=== PATIENT | female | born 1985 | race Caucasian/White ===

== ENCOUNTER 2016-12-03 18:45 | Emergency (ER) | payer OTHER ==
--- NOTE | 2016-12-03 19:39 | ED NURSING NOTES ---
Clinical Report - Nurses [facility] [address] [place] [address] 12/03/2016 18:45 Patient: MIR ROGERS TRIAGE Triage time 18:55. Acuity: LEVEL 4. Chief Complaint: MIGRAINE HEADACHE and (pain above the lt eye). Alert. No acute distress. SEPSIS SCREEN: Sepsis Screen: negative. Negative (no infection suspected/documented). NEVA COMA SCORE: [place] Coma Scale: 15- eyes open spontaneously (4); best verbal response- oriented x 4 (5); best motor response- obeys commands (6). --18:59 Mariia Kurtz R.N. 18:54 12/03/16. BP: 106/51. HR: 75. RR: 20. O2 saturation: 98% on room air. Temp: 97.6 F. Pain level now: 08/12. --18:59 Mariia Kurtz R.N. 18:54 12/03/16. BP: 106/51. HR: 75. RR: 20. O2 saturation: 98% on room air. Temp: 97.6 F. Pain level now: 08/12. --18:59 Mariia Kurtz R.N. Weight: 99.7 kg stated. Height/Length: 64 inches Per Patient. BMI: 37.8. --18:58 Mariia Kurtz R.N. Medications None. --18:57 Mariia Kurtz R.N. Medication/allergy information source: the patient. --18:59 Mariia Kurtz R.N. Allergies PCN. --18:57 Mariia Kurtz R.N. History Arrived by private vehicle. Historian: patient. No primary care physician. ( dropped off). This started today. Onset. (this am and got worse during the day). She has had nausea. No vomiting or numbness. 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 (4hrs ago). PAST MEDICAL HX: Headaches. SURGERY HX: Appendectomy. has been performed twice. SOCIAL HX: Light tobacco smoker (cigarette)- less than 1/2 a pack per day. No alcohol use or drug use. No recent travel. No known contact with a sick individual. FALL RISK ASSESSMENT: Fall risk assessment completed. No fall risk identified. NUTRITIONAL RISK ASSESSMENT: The nutritional risk assessment revealed no deficiencies. FUNCTIONAL ASSESSMENT: Functional assessment: no impairments noted. LEARNING NEEDS ASSESSMENT: The learning needs assessment revealed no barriers. SKIN INTEGRITY ASSESSMENT: Skin integrity risk assessment completed. No skin integrity risk identified. --18:59 Mariia Kurtz R.N. Interventions ID band on patient. To room. --18:59 Mariia Kurtz R.N. PHYSICAL ASSESSMENT Ambulatory to room. Patient gowned. GENERAL / NEURO / PSYCH: Alert. Oriented X 4. Appears in pain and anxious. Speech within normal limits. HEENT: No facial asymmetry noted. RESPIRATORY: Respirations not labored. CVS: Capillary refill less than 2 seconds. GI / : The patient has had nausea. Abdomen nontender. No emesis noted. SKIN: Skin is warm and dry. --19:00 Mariia Kurtz R.N. NURSING PROGRESS NOTES Patient gowned. Head of bed elevated. Two patient identifiers checked. Call light placed in reach. Side rails up x 2. Bed placed in lowest position. Brakes of bed on. Patient ready for evaluation. --19:01 Mariia Kurtz R.N. 19:47 12/03/2016 Imitrex (SUMAtriptan Succinate) Subcutaneous 6 mg given. Given in the right upper arm. --19:47 Mariia Kurtz R.N. 19:48 12/03/2016 Phenergan (Promethazine HCl) IM 25 mg given. Given in the right gluteus zachariah. Allergies verified, confirmed 5 rights and sedative warning given to the patient. --19:48 Mariia Kurtz R.N. 19:48 12/03/2016 Toradol (Ketorolac Tromethamine) IM 60 mg given. Given in the left gluteus zachariah (split dose). Allergies verified and confirmed 5 rights. --19:48 Mariia Kurtz R.N. DISPOSITION / DISCHARGE 19:56. No learning barriers present. Discharge instructions provided and reviewed with the patient. Patient verbalized understanding. Written instructions provided in Croatian. The patient was discharged home and accompanied by baling press operator. She left the Emergency Department ambulatory and via private vehicle. [employer] driving. Medication list reviewed and validated. --20:03 Mariia Kurtz R.N. 18:54 12/03/16. BP: 106/51. HR: 75. RR: 20. O2 saturation: 98% on room air. Temp: 97.6 F. Pain level now: 08/12. --20:03 Mariia Kurtz R.N. Locked/Released at 12/03/2016 20:03 by Mariia Kurtz R.N.
--- NOTE | 2016-12-03 19:39 | ED ORDER SUMMARY ---
..... Patient: MIR ROGERS OrderSheet [facility] VisitID: [id number] [address] [place] [address] 30y, F Registration Date/Time: 12/03/2016 ORDER SHEET Weight: 99.7 kg (stated) Allergies: PCN GENERAL ORDERS: MEDICATION ORDERS: Imitrex Subcut 6 mg (NOW) (19:24 12/03/2016 Fish CAICEDO) (Ack 19:39 SRoberts R.N.) (19:47 SRoberts R.N.) Phenergan IM 25 mg (HIGH ALERT MEDICATION, NOW) (19:24 12/03/2016 Fish CAICEDO) (Ack 19:39 SRoberts R.N.) (19:48 SRoberts R.N.) Toradol IM 60 mg (NOW) (19:24 12/03/2016 Fish CAICEDO) (Ack 19:39 SRoberts R.N.) (19:48 SRoberts R.N.) IV FLUIDS: ORDER SHEET NOTES: [Electronically signed by Mariia Kurtz R.N. (20:03 12/03/2016)] [Electronically signed by Celina Alexandra MD (17:17 12/09/2016)] [Electronically locked/signed by Mariia Kurtz R.N. (20:03 12/03/2016)]
--- NOTE | 2016-12-03 19:39 | ED CLINICAL REPORT ---
Clinical Report - Physicians/Mid Levels [facility] [address] [place] [address] 12/03/2016 18:45 Patient: MIR ROGERS Time Seen: 18:52. Arrived- By private vehicle. Historian- patient. HISTORY OF PRESENT ILLNESS Chief Complaint: MIGRAINE HEADACHE. Is still present. This started today. Onset during light activity. It is described as similar to previous headaches and "pain". Located in the frontal region and region of the left eye. No neck pain. At its maximum, severity described as moderate. Modifying factors: worsened by bright light; relieved by nothing. The patient has had photophobia and nausea. No preceding symptoms, blurred vision, numbness, weakness or vomiting. Similar symptoms previously: Many times. Recent medical care: Not recently seen/assessed. REVIEW OF SYSTEMS No fever, muscle aches, sinus pressure, ear pain or sore throat. No head injury, chest pain, difficulty breathing, cough or abdominal pain. No diarrhea, pain with urination, skin rash, enlarged lymph nodes or back pain. All systems otherwise negative, except as recorded above. PAST HISTORY Problems: Ovarian Cyst. Anxiety Reaction. OB History. Chronic Headache. Anemia. Sciatica. Migraine Headache. Tetanus Status. Immunizations. LNMP - Last Normal Menstrual Period. Additional Surgeries: Appendectomy. . Medications: None. Allergies: PCN. SOCIAL HISTORY Smoker- current status unknown. No alcohol use or drug use. ADDITIONAL NOTES The nursing notes have been reviewed. PHYSICAL EXAM Vital Signs: 12/03/2016 18:54 BP: 106/51. HR: 75. RR: 20. O2 saturation: 98%. Temp: 97.6 F. Pain level now: 10. Have been reviewed. Appearance: Alert. No acute distress. (PT appears mildly uncomfortable.). Eyes: Pupils equal, round and reactive to light. Eyes normal inspection. ENT: Nose normal. Neck: Normal inspection. CVS: Normal heart rate and rhythm. Heart sounds normal. Pulses normal. Respiratory: No respiratory distress. Breath sounds normal. Abdomen: Soft and nontender. Back: Normal inspection. No CVA tenderness. Skin: Skin warm and dry. Normal skin color. No rash. Normal skin turgor. Extremities: Extremities exhibit normal ROM. No lower extremity edema. Neuro: Oriented X 3. Alert. Mood/affect normal. Speech normal. Cranial nerves normal (as tested). No cerebellar findings. No motor deficit. No sensory deficit. LABS, X-RAYS, AND EKG Pulse Oximetry: 12/03/2016 18:54 O2 saturation: 98%. (FIO2 - room air). Interpretation: normal. PROGRESS AND PROCEDURES Course of Care: PT was given IM Phenergan and Toradol, and SQ Imitrex, with good response. Patient counseled in person regarding the patient's stable condition, diagnosis and need for follow-up. Concerns were addressed. Old medical records reviewed. Disposition: Discharged. Condition: stable and improved. CLINICAL IMPRESSION Acute recurrent migraine headache. No status migrainosus. INSTRUCTIONS Warnings: GENERAL WARNINGS: Return or contact your physician immediately if your condition worsens or changes unexpectedly, if not improving as expected, or if other problems arise. Follow-up: Follow up with your doctor in two days if not better. Understanding of the discharge instructions verbalized by patient. (Electronically signed by Celina Alexandra MD 12/09/2016 17:17)
--- NOTE | 2016-12-03 19:39 | ED CLINICAL REPORT ---
Clinical Report - Physicians/Mid Levels Located Within [facility] [address] [place] [address] 12/03/2016 18:45 Patient: MIR ROGERS Time Seen: 18:52. Arrived- By private vehicle. Historian- patient. HISTORY OF PRESENT ILLNESS Chief Complaint: MIGRAINE HEADACHE. Is still present. This started today. Onset during light activity. It is described as similar to previous headaches and "pain". Located in the frontal region and region of the left eye. No neck pain. At its maximum, severity described as moderate. Modifying factors: worsened by bright light; relieved by nothing. The patient has had photophobia and nausea. No preceding symptoms, blurred vision, numbness, weakness or vomiting. Similar symptoms previously: Many times. Recent medical care: Not recently seen/assessed. REVIEW OF SYSTEMS No fever, muscle aches, sinus pressure, ear pain or sore throat. No head injury, chest pain, difficulty breathing, cough or abdominal pain. No diarrhea, pain with urination, skin rash, enlarged lymph nodes or back pain. All systems otherwise negative, except as recorded above. PAST HISTORY Problems: Ovarian Cyst. Anxiety Reaction. OB History. Chronic Headache. Anemia. Sciatica. Migraine Headache. Tetanus Status. Immunizations. LNMP - Last Normal Menstrual Period. Additional Surgeries: Appendectomy. . Medications: None. Allergies: PCN. SOCIAL HISTORY Smoker- current status unknown. No alcohol use or drug use. ADDITIONAL NOTES The nursing notes have been reviewed. PHYSICAL EXAM Vital Signs: 12/03/2016 18:54 BP: 106/51. HR: 75. RR: 20. O2 saturation: 98%. Temp: 97.6 F. Pain level now: 10. Have been reviewed. Appearance: Alert. No acute distress. (PT appears mildly uncomfortable.). Eyes: Pupils equal, round and reactive to light. Eyes normal inspection. ENT: Nose normal. Neck: Normal inspection. CVS: Normal heart rate and rhythm. Heart sounds normal. Pulses normal. Respiratory: No respiratory distress. Breath sounds normal. Abdomen: Soft and nontender. Back: Normal inspection. No CVA tenderness. Skin: Skin warm and dry. Normal skin color. No rash. Normal skin turgor. Extremities: Extremities exhibit normal ROM. No lower extremity edema. Neuro: Oriented X 3. Alert. Mood/affect normal. Speech normal. Cranial nerves normal (as tested). No cerebellar findings. No motor deficit. No sensory deficit. LABS, X-RAYS, AND EKG Pulse Oximetry: 12/03/2016 18:54 O2 saturation: 98%. (FIO2 - room air). Interpretation: normal. PROGRESS AND PROCEDURES Course of Care: PT was given IM Phenergan and Toradol, and SQ Imitrex, with good response. Patient counseled in person regarding the patient's stable condition, diagnosis and need for follow-up. Concerns were addressed. Old medical records reviewed. Disposition: Discharged. Condition: stable and improved. CLINICAL IMPRESSION Acute recurrent migraine headache. No status migrainosus. INSTRUCTIONS Warnings: GENERAL WARNINGS: Return or contact your physician immediately if your condition worsens or changes unexpectedly, if not improving as expected, or if other problems arise. Follow-up: Follow up with your doctor in two days if not better. Understanding of the discharge instructions verbalized by patient. (Electronically signed by Celina Alexandra MD 12/09/2016 17:17)
--- NOTE | 2016-12-03 19:39 | ED ORDER SUMMARY ---
..... Patient: MIR ROGERS OrderSheet [facility] VisitID: [id number] [address] [place] [address] 30y, F Registration Date/Time: 12/03/2016 ORDER SHEET Weight: 99.7 kg (stated) Allergies: PCN GENERAL ORDERS: MEDICATION ORDERS: Imitrex Subcut 6 mg (NOW) (19:24 12/03/2016 Fish CAICEDO) (Ack 19:39 SRoberts R.N.) (19:47 SRoberts R.N.) Phenergan IM 25 mg (HIGH ALERT MEDICATION, NOW) (19:24 12/03/2016 Fish CAICEDO) (Ack 19:39 SRoberts R.N.) (19:48 SRoberts R.N.) Toradol IM 60 mg (NOW) (19:24 12/03/2016 Fish CAICEDO) (Ack 19:39 SRoberts R.N.) (19:48 SRoberts R.N.) IV FLUIDS: ORDER SHEET NOTES: [Electronically signed by Mariia Kurtz R.N. (20:03 12/03/2016)] [Electronically signed by Celina Alexandra MD (17:17 12/09/2016)] [Electronically locked/signed by Mariia Kurtz R.N. (20:03 12/03/2016)]
--- NOTE | 2016-12-03 19:39 | ED NURSING NOTES ---
Clinical Report - Nurses [facility] [address] [place] [address] 12/03/2016 18:45 Patient: MIR ROGERS TRIAGE Triage time 18:55. Acuity: LEVEL 4. Chief Complaint: MIGRAINE HEADACHE and (pain above the lt eye). Alert. No acute distress. SEPSIS SCREEN: Sepsis Screen: negative. Negative (no infection suspected/documented). NEVA COMA SCORE: [place] Coma Scale: 15- eyes open spontaneously (4); best verbal response- oriented x 4 (5); best motor response- obeys commands (6). --18:59 Mariia Kurtz R.N. 18:54 12/03/16. BP: 106/51. HR: 75. RR: 20. O2 saturation: 98% on room air. Temp: 97.6 F. Pain level now: 08/12. --18:59 Mariia Kurtz R.N. 18:54 12/03/16. BP: 106/51. HR: 75. RR: 20. O2 saturation: 98% on room air. Temp: 97.6 F. Pain level now: 08/12. --18:59 Mariia Kurtz R.N. Weight: 99.7 kg stated. Height/Length: 64 inches Per Patient. BMI: 37.8. --18:58 Mariia Kurtz R.N. Medications None. --18:57 Mariia Kurtz R.N. Medication/allergy information source: the patient. --18:59 Mariia Kurtz R.N. Allergies PCN. --18:57 Mariia Kurtz R.N. History Arrived by private vehicle. Historian: patient. No primary care physician. ( dropped off). This started today. Onset. (this am and got worse during the day). She has had nausea. No vomiting or numbness. 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 PAST MEDICAL HX: Headaches. SURGERY HX: Appendectomy. has been performed twice. SOCIAL HX: Light tobacco smoker (cigarette)- less than 1/2 a pack per day. No alcohol use or drug use. No recent travel. No known contact with a sick individual. FALL RISK ASSESSMENT: Fall risk assessment completed. No fall risk identified. NUTRITIONAL RISK ASSESSMENT: The nutritional risk assessment revealed no deficiencies. FUNCTIONAL ASSESSMENT: Functional assessment: no impairments noted. LEARNING NEEDS ASSESSMENT: The learning needs assessment revealed no barriers. SKIN INTEGRITY ASSESSMENT: Skin integrity risk assessment completed. No skin integrity risk identified. --18:59 Mariia Kurtz R.N. Interventions ID band on patient. To room. --18:59 Mariia Kurtz R.N. PHYSICAL ASSESSMENT Ambulatory to room. Patient gowned. GENERAL / NEURO / PSYCH: Alert. Oriented X 4. Appears in pain and anxious. Speech within normal limits. HEENT: No facial asymmetry noted. RESPIRATORY: Respirations not labored. CVS: Capillary refill less than 2 seconds. GI / : The patient has had nausea. Abdomen nontender. No emesis noted. SKIN: Skin is warm and dry. --19:00 Mariia Kurtz R.N. NURSING PROGRESS NOTES Patient gowned. Head of bed elevated. Two patient identifiers checked. Call light placed in reach. Side rails up x 2. Bed placed in lowest position. Brakes of bed on. Patient ready for evaluation. --19:01 Mariia Kurtz R.N. 19:47 12/03/2016 Imitrex (SUMAtriptan Succinate) Subcutaneous 6 mg given. Given in the right upper arm. --19:47 Mariia Kurtz R.N. 19:48 12/03/2016 Phenergan (Promethazine HCl) IM 25 mg given. Given in the right gluteus zachariah. Allergies verified, confirmed 5 rights and sedative warning given to the patient. --19:48 Mariia Kurtz R.N. 19:48 12/03/2016 Toradol (Ketorolac Tromethamine) IM 60 mg given. Given in the left gluteus zachariah (split dose). Allergies verified and confirmed 5 rights. --19:48 Mariia Kurtz R.N. DISPOSITION / DISCHARGE 19:56. No learning barriers present. Discharge instructions provided and reviewed with the patient. Patient verbalized understanding. Written instructions provided in Turkmen. The patient was discharged home and accompanied by remote inpatient coder. She left the Emergency Department ambulatory and via private vehicle. 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 Medication list reviewed and validated. --20:03 Mariia Kurtz R.N. 18:54 12/03/16. BP: 106/51. HR: 75. RR: 20. O2 saturation: 98% on room air. Temp: 97.6 F. Pain level now: 08/12. --20:03 Mariia Kurtz R.N. Locked/Released at 12/03/2016 20:03 by Mariia Kurtz R.N.
--- NOTE | 2016-12-09 17:17 | ED MAR SUMMARY ---
..... Medication Administration Record [facility] [address] [place] [address] Patient: MIR ROGERS Visit ID: [id number] 30y, F Weight: 99.7 kg Height/Length: 64 in BMI: 37.8 ALLERGIES: PCN Given 19:47 12/03/2016 Mariia Kurtz R.N. Medication Administered: IMITREX [SUBCUTANEOUS] (SUMATRIPTAN SUCCINATE), Dose: 6 mg Subcutaneous. Medication Ordered: Imitrex Subcut 6 mg (NOW). Given 19:48 12/03/2016 Mariia Kurtz R.N. Medication Administered: PHENERGAN [IM] (PROMETHAZINE HCL), Dose: 25 mg IM. Medication Ordered: Phenergan IM 25 mg (HIGH ALERT MEDICATION, NOW). Given 19:48 12/03/2016 Mariia Kurtz R.NAbhijeet Medication Administered: TORADOL [IM] (KETOROLAC TROMETHAMINE), Dose: 60 mg IM. Medication Ordered: Toradol IM 60 mg (NOW).
--- NOTE | 2016-12-09 17:17 | ED MED RECONCILIATION SUMMARY ---
Patient: OLIVER ROGERSGAIL Deven Medication Reconciliation Report [facility] VisitID: [id number] [address] [place] [address] 30y, F Registration Date/Time: 12/03/2016 Weight: 99.7 kg Height/Length: 64 in. BMI: 37.8 ALLERGIES: PCN The patient's Home Medications are listed below: NONE. The source(s) of the original Home Medication information: patient The following Medications were given to the patient in the Emergency Department: Imitrex [Subcutaneous] Subcutaneous 6 mg, administered: 12/03/2016 7:47:00 PM Phenergan [IM] IM 25 mg, administered: 12/03/2016 7:48:00 PM Toradol [IM] IM 60 mg, administered: 12/03/2016 7:48:00 PM The following Medications were prescribed to the patient: None.
--- NOTE | 2016-12-09 17:17 | ED MED RECONCILIATION SUMMARY ---
Patient: OLIVER ROGERSGAIL Deven Medication Reconciliation Report [facility] VisitID: [id number] [address] [place] [address] 30y, F Registration Date/Time: 12/03/2016 Weight: 99.7 kg Height/Length: 64 in. BMI: 37.8 ALLERGIES: PCN The patient's Home Medications are listed below: NONE. The source(s) of the original Home Medication information: patient The following Medications were given to the patient in the Emergency Department: Imitrex [Subcutaneous] Subcutaneous 6 mg, administered: 12/03/2016 7:47:00 PM Phenergan [IM] IM 25 mg, administered: 12/03/2016 7:48:00 PM Toradol [IM] IM 60 mg, administered: 12/03/2016 7:48:00 PM The following Medications were prescribed to the patient: None.
--- NOTE | 2016-12-09 17:17 | ED DISCHARGE INSTRUCTIONS ---
Patient: MIR ROGERS General Instructions [facility] VisitID: [id number] [place] [address] 30y, F Registration Date/Time: 12/03/2016 Acute recurrent migraine headache. No status migrainosus. INSTRUCTIONS Warnings: GENERAL WARNINGS: Return or contact your physician immediately if your condition worsens or changes unexpectedly, if not improving as expected, or if other problems arise. Follow-up: Follow up with your doctor in two days if not better. Understanding of the discharge instructions verbalized by patient. ADDITIONAL INFORMATION Migraine Headache Migraine headaches are related to changes in blood flow to the brain. This causes throbbing or constant pain on one or both sides of the head. The pain may last from a few hours to several days. There is usually nausea, vomiting, sensitivity to light and sound, and blurred vision. A migraine attack may be triggered by emotional stress, hormone changes during the menstrual cycle, oral contraceptives, alcohol use, certain foods containing tyramine, eye strain, weather changes, missing meals, or too little or too much sleep. Home Care For This Headache: 1) If you were given pain medicine for this headache, do not drive yourself home . Arrange for a ride, instead. When you get home, try to sleep. You should feel much better when you wake up. 2) Migraine headaches may improve with an ice pack on the forehead or at the base of the skull. Heat to the back of your neck may relieve any neck spasm. 3) Drink only clear liquids or eat a very light diet to avoid nausea/vomiting until symptoms improve. Preventing Future Headaches: 1) Pay attention to those factors that seem to trigger your headache. Try to avoid them when you can. If you have frequent headaches, it is useful to keep a diary of what you were doing, feeling or eating in the hours before each attack. Show this to your doctor to help find the cause of your headaches. a) If you feel that stress is a factor in your headaches, look at the sources of stress in your life. Find ways to release the build-up of those stresses by using regular exercise, relaxation methods (yoga, meditation), bio-feedback or simply taking time-out for yourself. For more information about this, consult your doctor or go to a local bookstore and review books and tapes on this subject. b) Tyramine is a substance present in the following foods : chocolate, yogurt, all cheeses except cottage cheese and cream cheese. smoked or pickled fish and meat (including infante, caviar, bologna, pepperoni, salami), liver, avocados, bananas, figs, raisins, and red wine. Be aware that these foods may trigger a migraine in some persons. Try taking these foods out of your diet for 1-2 months to see if this reduces headache frequency. Treating Future Attacks: 1) At the first sign of a headache, take time out if possible. Find a quiet, dark, comfortable place to sit or lie down. Let yourself relax or sleep. 2) An ice pack on the forehead or area of greatest pain may help. If you are having muscle spasm and tightness of the neck, a heating pad and massage to this area may be helpful. 3) If you have been prescribed a medicine to stop a migraine headache, use this at the very first warning sign of the headache (aura or initial pain) for best results. Follow Up with your doctor if the headache is not better within the next 24 hours. If you have frequent headaches you should discuss a treatment plan with your primary care doctor. Ask if you can have medicine to take at home the next time you get a bad headache. Poorly controlled chronic headaches may require a referral to a neurologist (headache specialist). Get Prompt Medical Attention if any of the following occur: Your head pain gets worse, or does not improve within 24 hours Repeated vomiting (cant keep liquids down) Sinus or ear or throat pain (not already reported) Fever of 100.4 F (38 C) or higher, or as directed by your healthcare provider Stiff neck Extreme drowsiness, confusion or fainting Dizziness, vertigo (dizziness with spinning sensation) Weakness of an arm or leg or one side of the face Difficulty with speech or vision You have been given the following additional information: Headache, Migraine (Classical) (Electronically signed by Celina Alexandra MD 12/09/2016 17:17)
--- NOTE | 2016-12-09 17:17 | ED MAR SUMMARY ---
..... Medication Administration Record [facility] [address] [place] [address] Patient: MIR ROGERS Visit ID: [id number] 30y, F Weight: 99.7 kg Height/Length: 64 in BMI: 37.8 ALLERGIES: PCN Given 19:47 12/03/2016 Mariia Kurtz R.N. Medication Administered: IMITREX [SUBCUTANEOUS] (SUMATRIPTAN SUCCINATE), Dose: 6 mg Subcutaneous. Medication Ordered: Imitrex Subcut 6 mg (NOW). Given 19:48 12/03/2016 Mariia Kurtz R.N. Medication Administered: PHENERGAN [IM] (PROMETHAZINE HCL), Dose: 25 mg IM. Medication Ordered: Phenergan IM 25 mg (HIGH ALERT MEDICATION, NOW). Given 19:48 12/03/2016 Mariia Kurtz R.NAbhijeet Medication Administered: TORADOL [IM] (KETOROLAC TROMETHAMINE), Dose: 60 mg IM. Medication Ordered: Toradol IM 60 mg (NOW).
== END 2016-12-03 19:54 | disposition home or self-care (01) ==
LOC: ED SRH 18:45
DX: G43.911 Migraine, unspecified, intractable, with status migrainosus (principal); F17.200 Nicotine dependence, unspecified, uncomplicated; Z88.0 Allergy status to penicillin

== ENCOUNTER 2016-12-18 11:49 | Emergency (ER) | payer OTHER ==
--- NOTE | 2016-12-18 13:12 | ED NURSING NOTES ---
Clinical Report - Nurses [facility] [address] [place] [address] 12/18/2016 11:51 Patient: MIR ROGERS TRIAGE Triage time 12:00. Acuity: LEVEL 5. Chief Complaint: LEFT LOWER TOOTHACHE. 12:00 12/18/16. 12:00 12/18/16. Alert. ( Pt was having a dental procedure today, and pt states they had to stop due to reaching her maximum amount of local anesthesia.). --12:03 Will Aleman R.N. 12:00 12/18/16. BP: 141/89. HR: 99. RR: 12. O2 saturation: 99% on room air. Temp: 98.2 F (oral). Pain level now: 08/12. --12:03 Will Aleman R.N. Weight: 99.7 kg stated. Height/Length: 64 inches Per Patient. BMI: 37.8. --12:00 Will Aleman R.N. Medications None. --12:03 Will Aleman R.N. Medication/allergy information source: the patient. --12:03 Will Aleman R.N. Allergies PCN. --12:03 Will Aleman R.N. History Arrived by private vehicle. Historian: patient. Accompanied by family. Primary physician (KRISTINA GANDHI). 12:00 12/18/16. This started today. She has no dental appointment scheduled. 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 PAST MEDICAL HX: Immunizations: up-to-date. Last normal menstrual period- Ended DEC 20. SOCIAL HX: Current every day light tobacco smoker (cigarette)- less than 1/2 a pack per day. No drug use. FALL RISK ASSESSMENT: Fall risk assessment completed. No fall risk identified. NUTRITIONAL RISK ASSESSMENT: The nutritional risk assessment revealed no deficiencies. FUNCTIONAL ASSESSMENT: Functional assessment: no impairments noted. LEARNING NEEDS ASSESSMENT: The learning needs assessment revealed no barriers. SKIN INTEGRITY ASSESSMENT: Skin integrity risk assessment completed. No skin integrity risk identified. --12:03 Will Aleman R.N. SOCIAL HX: No infectious disease exposure. ABUSE ASSESSMENT: No report of abuse. --12:03 Will Aleman R.N. PROBLEMS: Scabies. Felon. Fall. Ovarian Cyst. Discomfort of . Anxiety Reaction. . OB History. Chronic Headache. Recent Travel. Sick Contact. Back Pain. Anemia. Sciatica. Migraine Headache. UTI - Urinary Tract Infection. Paronychia. Abscess. Cellulitis. Tetanus Status. Hematuria. Immunizations. LNMP - Last Normal Menstrual Period. --12:03 Will Aleman R.N. ADDITIONAL SURGERIES: Appendectomy. . --12:03 Will Aleman R.N. Assessment 12:12/18/16. --12:03 Will Aleman R.N. Interventions 12:12/18/16. 12:12/18/16. ID and allergy band on patient. To treatment room. --12:03 Will Aleman R.N. PHYSICAL ASSESSMENT 12:12/18/16. Ambulatory to room. GENERAL / NEURO / PSYCH: Appears in pain. CVS: Capillary refill less than 2 seconds. SKIN: Skin is warm and dry. --12:04 Will Aleman R.N. NURSING PROGRESS NOTES 12:12/18/16. The plan of care for this patient has been created. Monitoring of patient in place. Head of bed elevated. Reassurance given. Two patient identifiers checked. Call light placed in reach. Side rails up x 2. Bed placed in lowest position. Brakes of bed on. Brakes of chair on. Patient ready for evaluation- chart flagged and notification provided. --12:04 Will Aleman R.N. 12:23 12/18/16. ( Dental referral sheet given). --12:23 Will Aleman R.N. DISPOSITION / DISCHARGE Departure time: 1325 PM. Condition at departure: unchanged and stable. The goals identified in the patient's plan of care were met. No learning barriers present. Reviewed medication(s) side effects, precautions, dosing and course information. Prescription(s) given to the patient (Cleocin and oxy 5). Reviewed referral to a dentist. Patient verbalized understanding. Written instructions provided in Occitan. No diet instructions or activity restrictions. The patient was discharged by the physician. She was discharged home and accompanied by sample book maker. She left the Emergency Department ambulatory and via private vehicle. Manager Gyn driving. FALL RISK ASSESSMENT: Fall risk assessment completed. No fall risk identified. --13:31 Imani Jarrell R.N. 13:20 12/18/16. BP: 129/77 (regular adult cuff) taken on the left arm, via an automated monitor, while sitting. HR: 92. RR: 15. O2 saturation: 98% on room air. Temp: 98.1 F (oral). Pain level now: 04/12. --13:31 Imani Jarrell R.N. Locked/Released at 12/18/2016 13:31 by Imani Jarrell R.N.
--- NOTE | 2016-12-18 13:12 | ED NURSING NOTES ---
Clinical Report - Nurses [facility] [address] [place] [address] 12/18/2016 11:51 Patient: MIR ROGERS TRIAGE Triage time 12:00. Acuity: LEVEL 5. Chief Complaint: LEFT LOWER TOOTHACHE. 12:00 12/18/16. 12:00 12/18/16. Alert. ( Pt was having a dental procedure today, and pt states they had to stop due to reaching her maximum amount of local anesthesia.). --12:03 Will Aleman R.N. 12:00 12/18/16. BP: 141/89. HR: 99. RR: 12. O2 saturation: 99% on room air. Temp: 98.2 F (oral). Pain level now: 08/12. --12:03 Will Aleman R.N. Weight: 99.7 kg stated. Height/Length: 64 inches Per Patient. BMI: 37.8. --12:00 Will Aleman R.N. Medications None. --12:03 Will Aleman R.N. Medication/allergy information source: the patient. --12:03 Will Aleman R.N. Allergies PCN. --12:03 Will Aleman R.N. History Arrived by private vehicle. Historian: patient. Accompanied by family. Primary physician (KRISTINA GANDHI). 12:00 12/18/16. This started today. She has no dental appointment scheduled. 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 PAST MEDICAL HX: Immunizations: up-to-date. Last normal menstrual period- Ended DEC 20. SOCIAL HX: Current every day light tobacco smoker (cigarette)- less than 1/2 a pack per day. No drug use. FALL RISK ASSESSMENT: Fall risk assessment completed. No fall risk identified. NUTRITIONAL RISK ASSESSMENT: The nutritional risk assessment revealed no deficiencies. FUNCTIONAL ASSESSMENT: Functional assessment: no impairments noted. LEARNING NEEDS ASSESSMENT: The learning needs assessment revealed no barriers. SKIN INTEGRITY ASSESSMENT: Skin integrity risk assessment completed. No skin integrity risk identified. --12:03 Will Aleman R.N. SOCIAL HX: No infectious disease exposure. ABUSE ASSESSMENT: No report of abuse. --12:03 Will Aleman R.N. PROBLEMS: Scabies. Felon. Fall. Ovarian Cyst. Discomfort of . Anxiety Reaction. . OB History. Chronic Headache. Recent Travel. Sick Contact. Back Pain. Anemia. Sciatica. Migraine Headache. UTI - Urinary Tract Infection. Paronychia. Abscess. Cellulitis. Tetanus Status. Hematuria. Immunizations. LNMP - Last Normal Menstrual Period. --12:03 Will Aleman R.N. ADDITIONAL SURGERIES: Appendectomy. . --12:03 Will Aleman R.N. Assessment 12:12/18/16. --12:03 Will Aleman R.N. Interventions 12:12/18/16. 12:12/18/16. ID and allergy band on patient. To treatment room. --12:03 Will Aleman R.N. PHYSICAL ASSESSMENT 12:12/18/16. Ambulatory to room. GENERAL / NEURO / PSYCH: Appears in pain. CVS: Capillary refill less than 2 seconds. SKIN: Skin is warm and dry. --12:04 Will Aleman R.N. NURSING PROGRESS NOTES 12:12/18/16. The plan of care for this patient has been created. Monitoring of patient in place. Head of bed elevated. Reassurance given. Two patient identifiers checked. Call light placed in reach. Side rails up x 2. Bed placed in lowest position. Brakes of bed on. Brakes of chair on. Patient ready for evaluation- chart flagged and notification provided. --12:04 Will Aleman R.N. 12:23 12/18/16. ( Dental referral sheet given). --12:23 Will Aleman R.N. DISPOSITION / DISCHARGE Departure time: 1325 PM. Condition at departure: unchanged and stable. The goals identified in the patient's plan of care were met. No learning barriers present. Reviewed medication(s) side effects, precautions, dosing and course information. Prescription(s) given to the patient (Cleocin and oxy 5). Reviewed referral to a dentist. Patient verbalized understanding. Written instructions provided in Korean. No diet instructions or activity restrictions. The patient was discharged by the physician. She was discharged home and accompanied by coil connector. She left the Emergency Department ambulatory and via private vehicle. Physical Laboratory Assistant driving. FALL RISK ASSESSMENT: Fall risk assessment completed. No fall risk identified. --13:31 Imani Jarrell R.N. 13:20 12/18/16. BP: 129/77 (regular adult cuff) taken on the left arm, via an automated monitor, while sitting. HR: 92. RR: 15. O2 saturation: 98% on room air. Temp: 98.1 F (oral). Pain level now: 04/12. --13:31 Imani Jarrell R.N. Locked/Released at 12/18/2016 13:31 by Imani Jarrell R.N.
--- NOTE | 2016-12-18 13:12 | ED CLINICAL REPORT ---
Clinical Report - Physicians/Mid Levels [facility] [address] [place] [address] 12/18/2016 11:51 Patient: MIR ROGERS Time Seen: 12:46 Dec 18 2016. Arrived- By private vehicle. Historian- patient. CPT: ER phys charges level 3 (#[id number]). HISTORY OF PRESENT ILLNESS Chief Complaint: DENTAL PAIN. This started today and is still present. Pain described as moderate. The patient has had toothache. Similar symptoms previously: Recent medical care: The patient was seen recently at another facility in the office (today). Seen for other problems. Evaluation and treatment: Attempted pulling tooth but could not due to anesthesia not working. REVIEW OF SYSTEMS No fever, cough, difficulty breathing, chest pain or nausea. No abdominal pain, difficulty with urination, fainting episodes, joint pain or skin rash. No enlarged lymph nodes. All systems otherwise negative, except as recorded above. PAST HISTORY Scabies. Felon. Fall. Ovarian Cyst. Discomfort of . Anxiety Reaction. . OB History. Chronic Headache. Recent Travel. Sick Contact. Back Pain. Anemia. Sciatica. Migraine Headache. UTI - Urinary Tract Infection. Paronychia. Abscess. Cellulitis. Tetanus Status. Hematuria. Immunizations. LNMP - Last Normal Menstrual Period. --12:03 Will Aleman R.N. ADDITIONAL SURGERIES: Appendectomy. . Medications: None. Allergies: PCN. SOCIAL HISTORY Light tobacco smoker (cigarette)- less than 1/2 a pack per day. No drug use. ADDITIONAL NOTES The nursing notes have been reviewed. PHYSICAL EXAM Vital Signs: 12/18/2016 12:00 BP: 141/89. HR: 99. RR: 12. O2 saturation: 99%. Temp: 98.2 F. Pain level now: 10/10. Appearance: Alert. Patient in mild distress. Head: Normal external inspection. Eyes: Pupils equal, round and reactive to light. Conjunctivae and eyelids normal. ENT: Moderate dental tenderness of a single tooth (lower left second molar) (Partially disrupted. Tooth appears intact.). Nose normal. Pharynx normal. Lips normal. Gums normal. Uvula midline. Neck: Trachea midline. No adenopathy. CVS: Normal heart rate and rhythm. Heart sounds normal. Pulses normal. No cardiac murmur. Respiratory: No respiratory distress. Breath sounds normal. Chest nontender. Abdomen: Soft. Skin: Normal skin color. No rash. Extremities: Extremities nontender. Neuro: Oriented X 3. No motor deficit. No sensory deficit. Reflexes normal. PROGRESS AND PROCEDURES Patient/family counseled. Disposition: Discharged. Condition: stable. CLINICAL IMPRESSION Partial , failed tooth extraction. INSTRUCTIONS Prescription Medications: Cleocin 300 mg: take 1 capsule orally every 6 hours for 7 days. No refills. Substitution is permissible. Oxycodone/APAP 5 mg/325 mg: take 1-2 tablets orally every 4 hours. Dispense fifteen (15). No refill. Follow-up: Follow up with an oral surgeon. Call for the next available appointment. Understanding of the discharge instructions verbalized by patient. (Electronically signed by Ranjit Kemp MD 12/20/2016 22:13)
--- NOTE | 2016-12-18 13:12 | ED CLINICAL REPORT ---
Clinical Report - Physicians/Mid Levels [facility] [address] [place] [address] 12/18/2016 11:51 Patient: MIR ROGERS Time Seen: 12:46 Dec 18 2016. Arrived- By private vehicle. Historian- patient. CPT: ER phys charges level 3 (#[id number]). HISTORY OF PRESENT ILLNESS Chief Complaint: DENTAL PAIN. This started today and is still present. Pain described as moderate. The patient has had toothache. Similar symptoms previously: Recent medical care: The patient was seen recently at another facility in the office (today). Seen for other problems. Evaluation and treatment: Attempted pulling tooth but could not due to anesthesia not working. REVIEW OF SYSTEMS No fever, cough, difficulty breathing, chest pain or nausea. No abdominal pain, difficulty with urination, fainting episodes, joint pain or skin rash. No enlarged lymph nodes. All systems otherwise negative, except as recorded above. PAST HISTORY Scabies. Felon. Fall. Ovarian Cyst. Discomfort of . Anxiety Reaction. . OB History. Chronic Headache. Recent Travel. Sick Contact. Back Pain. Anemia. Sciatica. Migraine Headache. UTI - Urinary Tract Infection. Paronychia. Abscess. Cellulitis. Tetanus Status. Hematuria. Immunizations. LNMP - Last Normal Menstrual Period. --12:03 Will Aleman R.N. ADDITIONAL SURGERIES: Appendectomy. . Medications: None. Allergies: PCN. SOCIAL HISTORY Light tobacco smoker (cigarette)- less than 1/2 a pack per day. No drug use. ADDITIONAL NOTES The nursing notes have been reviewed. PHYSICAL EXAM Vital Signs: 12/18/2016 12:00 BP: 141/89. HR: 99. RR: 12. O2 saturation: 99%. Temp: 98.2 F. Pain level now: 10/10. Appearance: Alert. Patient in mild distress. Head: Normal external inspection. Eyes: Pupils equal, round and reactive to light. Conjunctivae and eyelids normal. ENT: Moderate dental tenderness of a single tooth (lower left second molar) (Partially disrupted. Tooth appears intact.). Nose normal. Pharynx normal. Lips normal. Gums normal. Uvula midline. Neck: Trachea midline. No adenopathy. CVS: Normal heart rate and rhythm. Heart sounds normal. Pulses normal. No cardiac murmur. Respiratory: No respiratory distress. Breath sounds normal. Chest nontender. Abdomen: Soft. Skin: Normal skin color. No rash. Extremities: Extremities nontender. Neuro: Oriented X 3. No motor deficit. No sensory deficit. Reflexes normal. PROGRESS AND PROCEDURES Patient/family counseled. Disposition: Discharged. Condition: stable. CLINICAL IMPRESSION Partial , failed tooth extraction. INSTRUCTIONS Prescription Medications: Cleocin 300 mg: take 1 capsule orally every 6 hours for 7 days. No refills. Substitution is permissible. Oxycodone/APAP 5 mg/325 mg: take 1-2 tablets orally every 4 hours. Dispense fifteen (15). No refill. Follow-up: Follow up with an oral surgeon. Call for the next available appointment. Understanding of the discharge instructions verbalized by patient. (Electronically signed by Ranjit Kemp MD 12/20/2016 22:13)
--- NOTE | 2016-12-20 22:13 | ED DISCHARGE INSTRUCTIONS ---
Patient: MIR ROGERS General Instructions [facility] VisitID: [id number] [place] [address] 31y, F Registration Date/Time: 12/18/2016 Partial , failed tooth extraction. INSTRUCTIONS Prescription Medications: Cleocin 300 mg: take 1 capsule orally every 6 hours for 7 days. No refills. Substitution is permissible. Oxycodone/APAP 5 mg/325 mg: take 1-2 tablets orally every 4 hours. Dispense fifteen (15). No refill. Follow-up: Follow up with an oral surgeon. Call for the next available appointment. Understanding of the discharge instructions verbalized by patient. ADDITIONAL INFORMATION Oxycodone Hydrochloride, Acetaminophen Oral tablet What is this medicine? ACETAMINOPHEN; OXYCODONE (a set a FLAQUITA abigail fen; ox i KOE done) is a pain reliever. It is used to treat mild to moderate pain. How should I use this medicine? Take this medicine by mouth with a full glass of water. Follow the directions on the prescription label. Take your medicine at regular intervals. Do not take your medicine more often than directed. Talk to your lot associate regarding the use of this medicine in children. Special care may be needed. Patients over 65 years old may have a stronger reaction and need a smaller dose. What side effects may I notice from receiving this medicine? Side effects that you should report to your doctor or health overnight caregiver as soon as possible: allergic reactions like skin rash, itching or hives, swelling of the face, lips, or tongue breathing difficulties, wheezing confusion light headedness or fainting spells severe stomach pain yellowing of the skin or the whites of the eyes Side effects that usually do not require medical attention (report to your doctor or health overnight caregiver if they continue or are bothersome): dizziness drowsiness nausea vomiting What may interact with this medicine? alcohol antihistamines barbiturates like amobarbital, butalbital, butabarbital, methohexital, pentobarbital, phenobarbital, thiopental, and secobarbital benztropine drugs for bladder problems like solifenacin, trospium, oxybutynin, tolterodine, hyoscyamine, and methscopolamine drugs for breathing problems like ipratropium and tiotropium drugs for certain stomach or intestine problems like propantheline, homatropine methylbromide, glycopyrrolate, atropine, belladonna, and dicyclomine general anesthetics like etomidate, ketamine, nitrous oxide, propofol, desflurane, enflurane, halothane, isoflurane, and sevoflurane medicines for depression, anxiety, or psychotic disturbances medicines for sleep muscle relaxants naltrexone narcotic medicines (opiates) for pain phenothiazines like perphenazine, thioridazine, chlorpromazine, mesoridazine, fluphenazine, prochlorperazine, promazine, and trifluoperazine scopolamine tramadol trihexyphenidyl What if I miss a dose? If you miss a dose, take it as soon as you can. If it is almost time for your next dose, take only that dose. Do not take double or extra doses. Where should I keep my medicine? Keep out of the reach of children. This medicine can be abused. Keep your medicine in a safe place to protect it from theft. Do not share this medicine with anyone. Selling or giving away this medicine is dangerous and against the law. Store at room temperature between 20 and 25 degrees C (68 and 77 degrees F). Keep container tightly closed. Protect from light. This medicine may cause accidental overdose and if it is taken by other adults, children, or pets. Flush any unused medicine down the toilet to reduce the chance of harm. Do not use the medicine after the expiration date. What should I tell my health care provider before I take this medicine? They need to know if you have any of these conditions: brain tumor Crohn's disease, inflammatory bowel disease, or ulcerative colitis drink more than 3 alcohol containing drinks per day drug abuse or addiction head injury heart or circulation problems kidney disease or problems going to the bathroom liver disease lung disease, asthma, or breathing problems an unusual or allergic reaction to acetaminophen, oxycodone, other opioid analgesics, other medicines, foods, dyes, or preservatives or trying to get breast-feeding What should I watch for while using this medicine? Tell your doctor or health overnight caregiver if your pain does not go away, if it gets worse, or if you have new or a different type of pain. You may develop tolerance to the medicine. Tolerance means that you will need a higher dose of the medication for pain relief. Tolerance is normal and is expected if you take this medicine for a long time. Do not suddenly stop taking your medicine because you may develop a severe reaction. Your body becomes used to the medicine. This does NOT mean you are addicted. Addiction is a behavior related to getting and using a drug for a non-medical reason. If you have pain, you have a medical reason to take pain medicine. Your doctor will tell you how much medicine to take. If your doctor wants you to stop the medicine, the dose will be slowly lowered over time to avoid any side effects. You may get drowsy or dizzy. Do not drive, use machinery, or do anything that needs mental alertness until you know how this medicine affects you. Do not stand or sit up quickly, especially if you are an older patient. This reduces the risk of dizzy or fainting spells. Alcohol may interfere with the effect of this medicine. Avoid alcoholic drinks. There are different types of narcotic medicines (opiates) for pain. If you take more than one type at the same time, you may have more side effects. Give your health care provider a list of all medicines you use. Your doctor will tell you how much medicine to take. Do not take more medicine than directed. Call emergency for help if you have problems breathing. The medicine will cause constipation. Try to have a bowel movement at least every 2 to 3 days. If you do not have a bowel movement for 3 days, call your doctor or health overnight caregiver. Do not take Tylenol (acetaminophen) or medicines that have acetaminophen with this medicine. Too much acetaminophen can be very dangerous. Many nonprescription medicines contain acetaminophen. Always read the labels carefully to avoid taking more acetaminophen. You have been given the following additional information: Oxycodone Hydrochloride, Acetaminophen Oral tablet (Electronically signed by Ranjit Kemp MD 12/20/2016 22:13)
--- NOTE | 2016-12-20 22:13 | ED DISCHARGE INSTRUCTIONS ---
Patient: MIR ROGERS General Instructions [facility] VisitID: [id number] [place] [address] 31y, F Registration Date/Time: 12/18/2016 Partial , failed tooth extraction. INSTRUCTIONS Prescription Medications: Cleocin 300 mg: take 1 capsule orally every 6 hours for 7 days. No refills. Substitution is permissible. Oxycodone/APAP 5 mg/325 mg: take 1-2 tablets orally every 4 hours. Dispense fifteen (15). No refill. Follow-up: Follow up with an oral surgeon. Call for the next available appointment. Understanding of the discharge instructions verbalized by patient. ADDITIONAL INFORMATION Oxycodone Hydrochloride, Acetaminophen Oral tablet What is this medicine? ACETAMINOPHEN; OXYCODONE (a set a FLAQUITA abigail fen; ox i KOE done) is a pain reliever. It is used to treat mild to moderate pain. How should I use this medicine? Take this medicine by mouth with a full glass of water. Follow the directions on the prescription label. Take your medicine at regular intervals. Do not take your medicine more often than directed. Talk to your gusset maker regarding the use of this medicine in children. Special care may be needed. Patients over 65 years old may have a stronger reaction and need a smaller dose. What side effects may I notice from receiving this medicine? Side effects that you should report to your doctor or health childcare aide as soon as possible: allergic reactions like skin rash, itching or hives, swelling of the face, lips, or tongue breathing difficulties, wheezing confusion light headedness or fainting spells severe stomach pain yellowing of the skin or the whites of the eyes Side effects that usually do not require medical attention (report to your doctor or health childcare aide if they continue or are bothersome): dizziness drowsiness nausea vomiting What may interact with this medicine? alcohol antihistamines barbiturates like amobarbital, butalbital, butabarbital, methohexital, pentobarbital, phenobarbital, thiopental, and secobarbital benztropine drugs for bladder problems like solifenacin, trospium, oxybutynin, tolterodine, hyoscyamine, and methscopolamine drugs for breathing problems like ipratropium and tiotropium drugs for certain stomach or intestine problems like propantheline, homatropine methylbromide, glycopyrrolate, atropine, belladonna, and dicyclomine general anesthetics like etomidate, ketamine, nitrous oxide, propofol, desflurane, enflurane, halothane, isoflurane, and sevoflurane medicines for depression, anxiety, or psychotic disturbances medicines for sleep muscle relaxants naltrexone narcotic medicines (opiates) for pain phenothiazines like perphenazine, thioridazine, chlorpromazine, mesoridazine, fluphenazine, prochlorperazine, promazine, and trifluoperazine scopolamine tramadol trihexyphenidyl What if I miss a dose? If you miss a dose, take it as soon as you can. If it is almost time for your next dose, take only that dose. Do not take double or extra doses. Where should I keep my medicine? Keep out of the reach of children. This medicine can be abused. Keep your medicine in a safe place to protect it from theft. Do not share this medicine with anyone. Selling or giving away this medicine is dangerous and against the law. Store at room temperature between 20 and 25 degrees C (68 and 77 degrees F). Keep container tightly closed. Protect from light. This medicine may cause accidental overdose and if it is taken by other adults, children, or pets. Flush any unused medicine down the toilet to reduce the chance of harm. Do not use the medicine after the expiration date. What should I tell my health care provider before I take this medicine? They need to know if you have any of these conditions: brain tumor Crohn's disease, inflammatory bowel disease, or ulcerative colitis drink more than 3 alcohol containing drinks per day drug abuse or addiction head injury heart or circulation problems kidney disease or problems going to the bathroom liver disease lung disease, asthma, or breathing problems an unusual or allergic reaction to acetaminophen, oxycodone, other opioid analgesics, other medicines, foods, dyes, or preservatives or trying to get breast-feeding What should I watch for while using this medicine? Tell your doctor or health childcare aide if your pain does not go away, if it gets worse, or if you have new or a different type of pain. You may develop tolerance to the medicine. Tolerance means that you will need a higher dose of the medication for pain relief. Tolerance is normal and is expected if you take this medicine for a long time. Do not suddenly stop taking your medicine because you may develop a severe reaction. Your body becomes used to the medicine. This does NOT mean you are addicted. Addiction is a behavior related to getting and using a drug for a non-medical reason. If you have pain, you have a medical reason to take pain medicine. Your doctor will tell you how much medicine to take. If your doctor wants you to stop the medicine, the dose will be slowly lowered over time to avoid any side effects. You may get drowsy or dizzy. Do not drive, use machinery, or do anything that needs mental alertness until you know how this medicine affects you. Do not stand or sit up quickly, especially if you are an older patient. This reduces the risk of dizzy or fainting spells. Alcohol may interfere with the effect of this medicine. Avoid alcoholic drinks. There are different types of narcotic medicines (opiates) for pain. If you take more than one type at the same time, you may have more side effects. Give your health care provider a list of all medicines you use. Your doctor will tell you how much medicine to take. Do not take more medicine than directed. Call emergency for help if you have problems breathing. The medicine will cause constipation. Try to have a bowel movement at least every 2 to 3 days. If you do not have a bowel movement for 3 days, call your doctor or health childcare aide. Do not take Tylenol (acetaminophen) or medicines that have acetaminophen with this medicine. Too much acetaminophen can be very dangerous. Many nonprescription medicines contain acetaminophen. Always read the labels carefully to avoid taking more acetaminophen. You have been given the following additional information: Oxycodone Hydrochloride, Acetaminophen Oral tablet (Electronically signed by Ranjit Kemp MD 12/20/2016 22:13)
--- NOTE | 2016-12-20 22:14 | ED MED RECONCILIATION SUMMARY ---
Patient: MIR ROGERS Medication Reconciliation Report [facility] VisitID: [id number] [address] [place] [address] 31y, F Registration Date/Time: 12/18/2016 Weight: 99.7 kg Height/Length: 64 in. BMI: 37.8 ALLERGIES: PCN The patient's Home Medications are listed below: NONE. The source(s) of the original Home Medication information: patient The following Medications were given to the patient in the Emergency Department: None. The following Medications were prescribed to the patient: Cleocin 300 mg: take 1 capsule orally every 6 hours for 7 days. No refills. Substitution is permissible. -- Ranjit Kemp MD Oxycodone/APAP 5 mg/325 mg: take 1-2 tablets orally every 4 hours. Dispense fifteen (15). No refill. -- Ranjit Kemp MD
--- NOTE | 2016-12-20 22:14 | ED MED RECONCILIATION SUMMARY ---
Patient: MIR ROGERS Medication Reconciliation Report [facility] VisitID: [id number] [address] [place] [address] 31y, F Registration Date/Time: 12/18/2016 Weight: 99.7 kg Height/Length: 64 in. BMI: 37.8 ALLERGIES: PCN The patient's Home Medications are listed below: NONE. The source(s) of the original Home Medication information: patient The following Medications were given to the patient in the Emergency Department: None. The following Medications were prescribed to the patient: Cleocin 300 mg: take 1 capsule orally every 6 hours for 7 days. No refills. Substitution is permissible. -- Ranjit Kemp MD Oxycodone/APAP 5 mg/325 mg: take 1-2 tablets orally every 4 hours. Dispense fifteen (15). No refill. -- Ranjit Kemp MD
--- NOTE | 2016-12-20 22:14 | ED MAR SUMMARY ---
..... Medication Administration Record [facility] [address] [place], [place] [id number] Patient: ELIEZER ROGERSDALLAS Carvalho Visit ID: [id number] 31y, F Weight: 99.7 kg Height/Length: 64 in BMI: 37.8 ALLERGIES: PCN
--- NOTE | 2016-12-20 22:14 | ED MAR SUMMARY ---
..... Medication Administration Record [facility] [address] [place], [place] [id number] Patient: ELIEZER ROGERSDALLAS Carvalho Visit ID: [id number] 31y, F Weight: 99.7 kg Height/Length: 64 in BMI: 37.8 ALLERGIES: PCN
== END 2016-12-18 13:25 | disposition home or self-care (01) ==
LOC: ED SRH 11:49
DX: K08.89 Other specified disorders of teeth and supporting structures (principal); F17.210 Nicotine dependence, cigarettes, uncomplicated; Z88.0 Allergy status to penicillin

== ENCOUNTER 2017-01-14 21:13 | Emergency (ER) | payer OTHER ==
--- NOTE | 2017-01-14 21:40 | ED NURSING NOTES ---
Clinical Report - Nurses [facility] [address] [place] [address] 01/14/2017 21:13 Patient: MIR ROGERS TRIAGE Triage time 21:28. Acuity: LEVEL 4. Chief Complaint: SWELLING OF JAW / FACE and (Had a tooth pulled at yesterday. Ran out of med for pain.). Alert. No acute distress. --21:34 Mariia Kurtz R.N. 21:28 01/14/17. BP: 132/82. HR: 81. RR: 20. O2 saturation: 98%. Temp: 98.1 F. Pain level now: 07/13. --21:34 Mariia Kurtz R.N. 21:28 01/14/17. BP: 132/82. HR: 81. RR: 20. O2 saturation: 98%. Temp: 98.1 F. Pain level now: 07/13. --21:34 Mariia Kurtz R.N. Weight: 102.5 kg stated. Height/Length: 64 inches Per Patient. BMI: 38.8. --21:33 Mariia Kurtz R.N. Medications Vicodin Oral 5 mg, PRN. --21:30 Mariia Kurtz R.N. Ibuprofen Oral. --21:31 Mariia Kurtz R.N. Medication/allergy information source: the patient. --21:34 Mariia Kurtz R.N. Allergies PCN. --21:30 Mariia Kurtz R.N. History Arrived by private vehicle. Historian: patient. [facility] physician ([facility] This started yesterday. She has had facial pain. She has had swelling of the face and swelling of the jaw. 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 PAST MEDICAL HX: Immunizations: status is unknown. SOCIAL HX: Light tobacco smoker (cigarette)- less than 1/2 a pack per day. No alcohol use or drug use. FALL RISK ASSESSMENT: Fall risk assessment completed. No fall risk identified. NUTRITIONAL RISK ASSESSMENT: The nutritional risk assessment revealed no deficiencies. FUNCTIONAL ASSESSMENT: Functional assessment: no impairments noted. LEARNING NEEDS ASSESSMENT: The learning needs assessment revealed no barriers. SKIN INTEGRITY ASSESSMENT: Skin integrity risk assessment completed. No skin integrity risk identified. --21:34 Mariia Kurtz R.N. PROBLEMS: Scabies. Felon. Fall. Ovarian Cyst. Discomfort of . Anxiety Reaction. OB History. Chronic Headache. Recent Travel. Sick Contact. Back Pain. Anemia. Sciatica. Migraine Headache. UTI - Urinary Tract Infection. Paronychia. Abscess. Cellulitis. Tetanus Status. Hematuria. Immunizations. --21:32 Mariia Kurtz R.N. ADDITIONAL SURGERIES: Appendectomy. . --21:32 Mariia Kurtz R.N. Interventions ID band on patient. To room. --21:34 Mariia Kurtz R.N. PHYSICAL ASSESSMENT Ambulatory to room. GENERAL / NEURO / PSYCH: Alert. Oriented X 4. Appears in pain and anxious. HEENT: Voice within normal limits. Dental tenderness. Mucous membranes are pink. RESPIRATORY: Respirations not labored. CVS: Capillary refill less than 2 seconds. SKIN: Skin is warm and dry. Normal skin turgor. --21:35 Mariia Kurtz R.N. NURSING PROGRESS NOTES Head of bed elevated. Two patient identifiers checked. Call light placed in reach. Side rails up x 1. Bed placed in lowest position. Brakes of bed on. Patient ready for evaluation. --21:35 Mariia Kurtz R.N. DISPOSITION / DISCHARGE Departure time: 2147. No learning barriers present. Discharge instructions provided and reviewed with the patient. Reviewed warnings. Reviewed medication(s) information. Patient verbalized understanding. Written instructions provided in Sierra Leonean. The patient was discharged by the nurse practitioner. She was discharged home. She left the Emergency Department ambulatory and via private vehicle. Patient driving. --21:52 Galo Leo R.N. 21:51 01/14/17. BP: 134/94. HR: 70. RR: 18. O2 saturation: 97%. Temp: 98.4 F. Pain level now 6/10. --21:52 Galo Leo R.N. Locked/Released at 01/16/2017 8:38 by Analilia Cormier R.N.
--- NOTE | 2017-01-14 21:40 | ED NURSING NOTES ---
Clinical Report - Nurses [facility] [address] [place] [address] 01/14/2017 21:13 Patient: MIR ROGERS TRIAGE Triage time 21:28. Acuity: LEVEL 4. Chief Complaint: SWELLING OF JAW / FACE and (Had a tooth pulled at yesterday. Ran out of med for pain.). Alert. No acute distress. --21:34 Mariia Kurtz R.N. 21:28 01/14/17. BP: 132/82. HR: 81. RR: 20. O2 saturation: 98%. Temp: 98.1 F. Pain level now: 07/13. --21:34 Mariia Kurtz R.N. 21:28 01/14/17. BP: 132/82. HR: 81. RR: 20. O2 saturation: 98%. Temp: 98.1 F. Pain level now: 07/13. --21:34 Mariia Kurtz R.N. Weight: 102.5 kg stated. Height/Length: 64 inches Per Patient. BMI: 38.8. --21:33 Mariia Kurtz R.N. Medications Vicodin Oral 5 mg, PRN. --21:30 Mariia Kurtz R.N. Ibuprofen Oral. --21:31 Mariia Kurtz R.N. Medication/allergy information source: the patient. --21:34 Mariia Kurtz R.N. Allergies PCN. --21:30 Mariia Kurtz R.N. History Arrived by private vehicle. Historian: patient. [facility] ([facility] This started yesterday. She has had facial pain. She has had swelling of the face and swelling of the jaw. 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 PAST MEDICAL HX: Immunizations: status is unknown. SOCIAL HX: Light tobacco smoker (cigarette)- less than 1/2 a pack per day. No alcohol use or drug use. FALL RISK ASSESSMENT: Fall risk assessment completed. No fall risk identified. NUTRITIONAL RISK ASSESSMENT: The nutritional risk assessment revealed no deficiencies. FUNCTIONAL ASSESSMENT: Functional assessment: no impairments noted. LEARNING NEEDS ASSESSMENT: The learning needs assessment revealed no barriers. SKIN INTEGRITY ASSESSMENT: Skin integrity risk assessment completed. No skin integrity risk identified. --21:34 Mariia Kurtz R.N. PROBLEMS: Scabies. Felon. Fall. Ovarian Cyst. Discomfort of . Anxiety Reaction. OB History. Chronic Headache. Recent Travel. Sick Contact. Back Pain. Anemia. Sciatica. Migraine Headache. UTI - Urinary Tract Infection. Paronychia. Abscess. Cellulitis. Tetanus Status. Hematuria. Immunizations. --21:32 Mariia Kurtz R.N. ADDITIONAL SURGERIES: Appendectomy. . --21:32 Mariia Kurtz R.N. Interventions ID band on patient. To room. --21:34 Mariia Kurtz R.N. PHYSICAL ASSESSMENT Ambulatory to room. GENERAL / NEURO / PSYCH: Alert. Oriented X 4. Appears in pain and anxious. HEENT: Voice within normal limits. Dental tenderness. Mucous membranes are pink. RESPIRATORY: Respirations not labored. CVS: Capillary refill less than 2 seconds. SKIN: Skin is warm and dry. Normal skin turgor. --21:35 Mariia Kurtz R.N. NURSING PROGRESS NOTES Head of bed elevated. Two patient identifiers checked. Call light placed in reach. Side rails up x 1. Bed placed in lowest position. Brakes of bed on. Patient ready for evaluation. --21:35 Mariia Kutrz R.N. DISPOSITION / DISCHARGE Departure time: 2147. No learning barriers present. Discharge instructions provided and reviewed with the patient. Reviewed warnings. Reviewed medication(s) information. Patient verbalized understanding. Written instructions provided in Indonesian. The patient was discharged by the nurse practitioner. She was discharged home. She left the Emergency Department ambulatory and via private vehicle. Patient driving. --21:52 Galo Leo R.N. 21:51 01/14/17. BP: 134/94. HR: 70. RR: 18. O2 saturation: 97%. Temp: 98.4 F. Pain level now 6/10. --21:52 Galo Leo R.N. Locked/Released at 01/16/2017 8:38 by Analilia Cormier R.N.
--- NOTE | 2017-01-14 21:40 | ED CLINICAL REPORT ---
Clinical Report - Physicians/Mid Levels [facility] [address] [place] [address] 01/14/2017 21:13 Patient: MIR ROGERS Time Seen: 21:25; initial patient contact, initial documentation, patient care assumed. Arrived- By private vehicle. Historian- patient. RETURN VISIT: recently seen in this ED by another ED physician. Seen now for the same problem as before. HISTORY OF PRESENT ILLNESS Chief Complaint: DENTAL PAIN. This started yesterday. It is gone now. No sore throat, mouth sores, nasal discharge or congestion or ear pain. She has had toothache, swelling of the jaw and face, jaw pain and facial pain. Similar symptoms previously: Once, as bad. Recent medical care: The patient was seen recently at this facility in the emergency department. ( txed here 12/18 for dental issues and pain, got rx cleocin and oxycodone, states she f/u yesterday and had tooth removed, was given #10 vicoden and no abx, and already out of pain med, wants something for pain, no f/u scheduled). REVIEW OF SYSTEMS No difficulty breathing or chest pain. All systems otherwise negative, except as recorded above. PAST HISTORY See nurses notes. Scabies. Felon. Fall. Ovarian Cyst. Discomfort of . Anxiety Reaction. . OB History. Chronic Headache. Recent Travel. Sick Contact. Back Pain. Anemia. Sciatica. Migraine Headache. UTI - Urinary Tract Infection. Paronychia. Abscess. Cellulitis. Tetanus Status. Hematuria. Immunizations. LNMP - Last Normal Menstrual Period. --12:03 Will Aleman R.N. ADDITIONAL SURGERIES: Appendectomy. . SOCIAL HISTORY Light tobacco smoker. No alcohol use or drug use. No recent travel. Is a local resident. FAMILY HISTORY Negative. ADDITIONAL NOTES The nursing notes have been reviewed with agreement regarding the chief complaint, HPI, ROS, PMH and patient medications and allergies. PHYSICAL EXAM Vital Signs: 01/14/2017 21:28 BP: 132/82. HR: 81. RR: 20. O2 saturation: 98%. Temp: 98.1 F. Pain level now: 910. Have been reviewed as normal and appear to be correct. Appearance: Alert. No acute distress. Head: Abnormal external inspection. Mild swelling of the left maxilla. Eyes: Pupils equal, round and reactive to light. Conjunctivae and eyelids normal. ENT: Moderate dental tenderness of a single tooth with gingival tenderness (lower left first molar). No gingival induration, swelling or fluctuance. Ears normal. Nose normal. Pharynx normal. Lips normal. Gums normal. No trismus present. Uvula midline. Neck: Normal inspection. Trachea midline. No adenopathy. Thyroid normal. Neck supple. Respiratory: No respiratory distress. Skin: Normal skin color. No rash. Normal skin turgor. Extremities: Extremities exhibit normal ROM. Extremities nontender. Neuro: Oriented X 3. No motor deficit. No sensory deficit. PROGRESS AND PROCEDURES Patient counseled in person regarding the patient's stable condition and diagnosis. 21:39. Differential Diagnosis: Other possible considerations: substance abuse, dental pain, abscess, caries. Above considerations are based on history and physical exam. Differential diagnosis was discussed with patient. Disposition: Discharged home in good and unchanged condition (21:39). Condition: good and stable. CLINICAL IMPRESSION Moderate dental pain. INSTRUCTIONS Warnings: GENERAL WARNINGS: Return or contact your physician immediately if your condition worsens or changes unexpectedly, if not improving as expected, or if other problems arise. Specifically return if problem worsens. Prescription Medications: Tylenol with Codeine #3 (30 mg / 300 mg): take 1 tablet every 4 hours as needed for pain. Dispense fifteen (15). No refills. Substitution is permissible. Cleocin 300 mg: take 1 capsule orally every 6 hours for 7 days. No refills. Substitution is permissible. Follow-up: Follow up with a dentist in about two days even if well. Call for an appointment. Summary of care provided to patient. Understanding of the discharge instructions verbalized by patient. (Electronically signed by Yazmin Calderon A.R.N.P. 01/14/2017 22:47)
--- NOTE | 2017-01-16 08:38 | ED DISCHARGE INSTRUCTIONS ---
Patient: MIR ROGERS General Instructions [facility] VisitID: [id number] [place] [address] 31y, F Registration Date/Time: 01/14/2017 Moderate dental pain. INSTRUCTIONS Warnings: GENERAL WARNINGS: Return or contact your physician immediately if your condition worsens or changes unexpectedly, if not improving as expected, or if other problems arise. Specifically return if problem worsens. Prescription Medications: Tylenol with Codeine #3 (30 mg / 300 mg): take 1 tablet every 4 hours as needed for pain. Dispense fifteen (15). No refills. Substitution is permissible. Cleocin 300 mg: take 1 capsule orally every 6 hours for 7 days. No refills. Substitution is permissible. Follow-up: Follow up with a dentist in about two days even if well. Call for an appointment. Summary of care provided to patient. Understanding of the discharge instructions verbalized by patient. ADDITIONAL INFORMATION Dental Pain A crack or cavity in the tooth, which exposes the sensitive inner area of the tooth can cause tooth pain. An infection in the gum or the root of the tooth can cause pain and swelling. The pain is often made worse by drinking hot or cold fluids, or biting on hard foods. Pain may spread from the tooth to the ear or jaw on the same side. Home Care: Avoid hot and cold foods and liquids since your tooth may be sensitive to temperature changes. If your tooth is chipped or cracked, or if there is a large open cavity, apply OIL OF CLOVES (available [id number] in drug stores) directly to the tooth to reduce pain. Some pharmacies carry an [id number] "toothache kit." This contains a paste, which can be applied over the exposed tooth to decrease sensitivity. A cold pack on your jaw over the sore area may help reduce pain. You may use acetaminophen (Tylenol) or ibuprofen (Motrin, Advil) to control pain, unless another medicine was prescribed. [ NOTE: If you have chronic liver or kidney disease or ever had a stomach ulcer or GI bleeding, talk with your doctor before using these medicines.] If you have signs of an infection, an antibiotic will be given. Take it as directed. Follow-Up as directed with a dentist. Your pain may go away with the treatment given. However, only a dentist can fully evaluate and treat the cause and prevent the pain from coming back again. TOOTHACHE IS A SIGN OF DISEASE IN YOUR TOOTH AND SHOULD BE EXAMINED AND TREATED BY A DENTIST. Get Prompt Medical Attention if any of the following occur: Your face becomes swollen or red Pain worsens or spreads to the neck Fever over 100.4 F (38.0 C) Unusual drowsiness; headache or stiff neck; weakness or fainting Pus drains from the tooth Difficulty swallowing or breathing Acetaminophen, Codeine Phosphate Oral tablet What is this medicine? ACETAMINOPHEN; CODEINE (a set a FLAQUITA abigail fen; KOE carolyn) is a pain reliever. It is used to treat mild to moderate pain. How should I use this medicine? Take this medicine by mouth with a full glass of water. Follow the directions on the prescription label. If the medicine upsets your stomach, take the medicine with food or milk. Do not take more medicine than you are told to take. Talk to your nsh teacher regarding the use of this medicine in children. Special care may be needed. What side effects may I notice from receiving this medicine? Side effects that you should report to your doctor or health child care aide as soon as possible: allergic reactions like skin rash, itching or hives, swelling of the face, lips, or tongue breathing difficulties, wheezing confusion light headedness or fainting spells severe stomach pain yellowing of the skin or the whites of the eyes Side effects that usually do not require medical attention (report to your doctor or health child care aide if they continue or are bothersome): dizziness drowsiness nausea, vomiting What may interact with this medicine? alcohol antihistamines benztropine drugs for bladder problems like solifenacin, trospium, oxybutynin, tolterodine, hycosamine, and methscopolamine drugs for breathing problems like ipratropium and tiotropium drugs for certain stomach or intestine problems like propantheline, homatropine methylbromide, glycopyrrolate, atropine, belladonna, and dicyclomine medicines for depression, anxiety, or psychotic disturbances medicines for sleep muscle relaxants naltrexone narcotic medicines (opiates) for pain phenothiazines like perphenazine, thioridazine, chlorpromazine, mesoridazine, fluphenazine, prochlorperazine, promazine, trifluoperazine scopolamine tramadol trihexyphenidyl What if I miss a dose? If you miss a dose, take it as soon as you can. If it is almost time for your next dose, take only that dose. Do not take double or extra doses. Where should I keep my medicine? Keep out of the reach of children. This medicine can be abused. Keep your medicine in a safe place to protect it from theft. Do not share this medicine with anyone. Selling or giving away this medicine is dangerous and against the law. Store at room temperature between 15 and 30 degrees C (59 and 86 degrees F). Protect from light. Keep container tightly closed. Throw away any unused medicine after the expiration date. Discard unused medicine and used packaging carefully. Pets and children can be harmed if they find used or lost packages. What should I tell my health care provider before I take this medicine? They need to know if you have any of these conditions: brain tumor Crohn's disease, inflammatory bowel disease, or ulcerative colitis drink more than 3 alcohol containing drinks per day drug abuse or addiction head injury heart or circulation problems kidney disease or problems going to the bathroom liver disease lung disease, asthma, or breathing problems an unusual or allergic reaction to acetaminophen, codeine, salicylates, other opioid analgesics, other medicines, foods, dyes, or preservatives or trying to get breast-feeding What should I watch for while using this medicine? Tell your doctor or health child care aide if your pain does not go away, if it gets worse, or if you have new or a different type of pain. You may develop tolerance to the medication. Tolerance means that you will need a higher dose of the medication for pain relief. Tolerance is normal and is expected if you take the medicine for a long time. Do not suddenly stop taking your medicine because you may develop a severe reaction. Your body becomes used to the medicine. This does NOT mean you are addicted. Addiction is a behavior related to getting and using a drug for a non medical reason. If you have pain, you have a medical reason to take pain medicine. Your doctor will tell you how much medicine to take. If your doctor wants you to stop the medicine, the dose will be slowly lowered over time to avoid any side effects. You may get drowsy or dizzy. Do not drive, use machinery, or do anything that needs mental alertness until you know how this medicine affects you. Do not stand or sit up quickly, especially if you are an older patient. This reduces the risk of dizzy or fainting spells. Alcohol may interfere with the effect of this medicine. Avoid alcoholic drinks. There are different types of narcotic medicines (opiates) for pain. If you take more than one type at the same time, you may have more side effects. Give your health care provider a list of all medicines you use. Your doctor will tell you how much medicine to take. Do not take more medicine than directed. Call emergency for help if you have problems breathing. The medicine will cause constipation. Try to have a bowel movement at least every 2 to 3 days. If you do not have a bowel movement for 3 days, call your doctor or health child care aide. Do not take Tylenol (acetaminophen) or medicines that have acetaminophen with this medicine. Too much acetaminophen can be very dangerous. Many nonprescription medicines contain acetaminophen. Always read the labels carefully to avoid taking more acetaminophen. Immediately call your physician or get emergency help if you are breast-feeding and your baby is sleepier than usual, is limp, or has difficulty or breathing. Clindamycin Hydrochloride Oral capsule What is this medicine? CLINDAMYCIN (KLIN da SURINDER sin) is a lincosamide antibiotic. It is used to treat certain kinds of bacterial infections. It will not work for colds, flu, or other viral infections. How should I use this medicine? Take this medicine by mouth with a full glass of water. Follow the directions on the prescription label. You can take this medicine with food or on an empty stomach. If the medicine upsets your stomach, take it with food. Take your medicine at regular intervals. Do not take your medicine more often than directed. Take all of your medicine as directed even if you think your are better. Do not skip doses or stop your medicine early. Talk to your nsh teacher regarding the use of this medicine in children. Special care may be needed. What side effects may I notice from receiving this medicine? Side effects that you should report to your doctor or health child care aide as soon as possible: allergic reactions like skin rash, itching or hives, swelling of the face, lips, or tongue dark urine pain on swallowing redness, blistering, peeling or loosening of the skin, including inside the mouth unusual bleeding or bruising unusually weak or tired yellowing of eyes or skin Side effects that usually do not require medical attention (report to your doctor or health child care aide if they continue or are bothersome): diarrhea itching in the rectal or genital area joint pain nausea, vomiting stomach pain What may interact with this medicine? chloramphenicol erythromycin kaolin products What if I miss a dose? If you miss a dose, take it as soon as you can. If it is almost time for your next dose, take only that dose. Do not take double or extra doses. Where should I keep my medicine? Keep out of the reach of children. Store at room temperature between 20 and 25 degrees C (68 and 77 degrees F). Throw away any unused medicine after the expiration date. What should I tell my health care provider before I take this medicine? They need to know if you have any of these conditions: kidney disease liver disease stomach problems like colitis an unusual or allergic reaction to clindamycin, lincomycin, or other medicines, foods, dyes like tartrazine or preservatives or trying to get breast-feeding What should I watch for while using this medicine? Tell your doctor or healthcare professional if your symptoms do not start to get better or if they get worse. Do not treat diarrhea with over the counter products. Contact your doctor if you have diarrhea that lasts more than 2 days or if it is severe and watery. You have been given the following additional information: Dental Pain Acetaminophen, Codeine Phosphate Oral tablet Clindamycin Hydrochloride Oral capsule (Electronically signed by Yazmin Calderon A.R.N.P. 01/14/2017 22:47)
--- NOTE | 2017-01-16 08:38 | ED MED RECONCILIATION SUMMARY ---
Patient: MIR ROGERS Medication Reconciliation Report [facility] VisitID: [id number] [address] [place] [address] 31y, F Registration Date/Time: 01/14/2017 Weight: 102.5 kg Height/Length: 64 in. BMI: 38.8 ALLERGIES: PCN The patient's Home Medications are listed below: THE FOLLOWING MEDICATIONS NEED TO BE RECONCILED: Ibuprofen Oral Vicodin Oral 5 mg, PRN The source(s) of the original Home Medication information: patient The following Medications were given to the patient in the Emergency Department: None. The following Medications were prescribed to the patient: Tylenol with Codeine #3 (30 mg / 300 mg): take 1 tablet every 4 hours as needed for pain. Dispense fifteen (15). No refills. Substitution is permissible. -- Yazmin Calderon A.R.N.P. Cleocin 300 mg: take 1 capsule orally every 6 hours for 7 days. No refills. Substitution is permissible. -- Yazmin Calderon A.R.N.P.
--- NOTE | 2017-01-16 08:38 | ED MAR SUMMARY ---
..... Medication Administration Record [facility] [address] [place], [place] [id number] Patient: MIR ROGERS Visit ID: [id number] 31y, F Weight: 102.5 kg Height/Length: 64 in BMI: 38.8 ALLERGIES: PCN
--- NOTE | 2017-01-16 08:38 | ED DISCHARGE INSTRUCTIONS ---
Patient: MIR ROGERS General Instructions [facility] VisitID: [id number] [place] [address] 31y, F Registration Date/Time: 01/14/2017 Moderate dental pain. INSTRUCTIONS Warnings: GENERAL WARNINGS: Return or contact your physician immediately if your condition worsens or changes unexpectedly, if not improving as expected, or if other problems arise. Specifically return if problem worsens. Prescription Medications: Tylenol with Codeine #3 (30 mg / 300 mg): take 1 tablet every 4 hours as needed for pain. Dispense fifteen (15). No refills. Substitution is permissible. Cleocin 300 mg: take 1 capsule orally every 6 hours for 7 days. No refills. Substitution is permissible. Follow-up: Follow up with a dentist in about two days even if well. Call for an appointment. Summary of care provided to patient. Understanding of the discharge instructions verbalized by patient. ADDITIONAL INFORMATION Dental Pain A crack or cavity in the tooth, which exposes the sensitive inner area of the tooth can cause tooth pain. An infection in the gum or the root of the tooth can cause pain and swelling. The pain is often made worse by drinking hot or cold fluids, or biting on hard foods. Pain may spread from the tooth to the ear or jaw on the same side. Home Care: Avoid hot and cold foods and liquids since your tooth may be sensitive to temperature changes. If your tooth is chipped or cracked, or if there is a large open cavity, apply OIL OF CLOVES (available [id number] in drug stores) directly to the tooth to reduce pain. Some pharmacies carry an [id number] "toothache kit." This contains a paste, which can be applied over the exposed tooth to decrease sensitivity. A cold pack on your jaw over the sore area may help reduce pain. You may use acetaminophen (Tylenol) or ibuprofen (Motrin, Advil) to control pain, unless another medicine was prescribed. [ NOTE: If you have chronic liver or kidney disease or ever had a stomach ulcer or GI bleeding, talk with your doctor before using these medicines.] If you have signs of an infection, an antibiotic will be given. Take it as directed. Follow-Up as directed with a dentist. Your pain may go away with the treatment given. However, only a dentist can fully evaluate and treat the cause and prevent the pain from coming back again. TOOTHACHE IS A SIGN OF DISEASE IN YOUR TOOTH AND SHOULD BE EXAMINED AND TREATED BY A DENTIST. Get Prompt Medical Attention if any of the following occur: Your face becomes swollen or red Pain worsens or spreads to the neck Fever over 100.4 F (38.0 C) Unusual drowsiness; headache or stiff neck; weakness or fainting Pus drains from the tooth Difficulty swallowing or breathing Acetaminophen, Codeine Phosphate Oral tablet What is this medicine? ACETAMINOPHEN; CODEINE (a set a FLAQUITA abigail fen; KOE carolyn) is a pain reliever. It is used to treat mild to moderate pain. How should I use this medicine? Take this medicine by mouth with a full glass of water. Follow the directions on the prescription label. If the medicine upsets your stomach, take the medicine with food or milk. Do not take more medicine than you are told to take. Talk to your mop maker regarding the use of this medicine in children. Special care may be needed. What side effects may I notice from receiving this medicine? Side effects that you should report to your doctor or health senior care assistant as soon as possible: allergic reactions like skin rash, itching or hives, swelling of the face, lips, or tongue breathing difficulties, wheezing confusion light headedness or fainting spells severe stomach pain yellowing of the skin or the whites of the eyes Side effects that usually do not require medical attention (report to your doctor or health senior care assistant if they continue or are bothersome): dizziness drowsiness nausea, vomiting What may interact with this medicine? alcohol antihistamines benztropine drugs for bladder problems like solifenacin, trospium, oxybutynin, tolterodine, hycosamine, and methscopolamine drugs for breathing problems like ipratropium and tiotropium drugs for certain stomach or intestine problems like propantheline, homatropine methylbromide, glycopyrrolate, atropine, belladonna, and dicyclomine medicines for depression, anxiety, or psychotic disturbances medicines for sleep muscle relaxants naltrexone narcotic medicines (opiates) for pain phenothiazines like perphenazine, thioridazine, chlorpromazine, mesoridazine, fluphenazine, prochlorperazine, promazine, trifluoperazine scopolamine tramadol trihexyphenidyl What if I miss a dose? If you miss a dose, take it as soon as you can. If it is almost time for your next dose, take only that dose. Do not take double or extra doses. Where should I keep my medicine? Keep out of the reach of children. This medicine can be abused. Keep your medicine in a safe place to protect it from theft. Do not share this medicine with anyone. Selling or giving away this medicine is dangerous and against the law. Store at room temperature between 15 and 30 degrees C (59 and 86 degrees F). Protect from light. Keep container tightly closed. Throw away any unused medicine after the expiration date. Discard unused medicine and used packaging carefully. Pets and children can be harmed if they find used or lost packages. What should I tell my health care provider before I take this medicine? They need to know if you have any of these conditions: brain tumor Crohn's disease, inflammatory bowel disease, or ulcerative colitis drink more than 3 alcohol containing drinks per day drug abuse or addiction head injury heart or circulation problems kidney disease or problems going to the bathroom liver disease lung disease, asthma, or breathing problems an unusual or allergic reaction to acetaminophen, codeine, salicylates, other opioid analgesics, other medicines, foods, dyes, or preservatives or trying to get breast-feeding What should I watch for while using this medicine? Tell your doctor or health senior care assistant if your pain does not go away, if it gets worse, or if you have new or a different type of pain. You may develop tolerance to the medication. Tolerance means that you will need a higher dose of the medication for pain relief. Tolerance is normal and is expected if you take the medicine for a long time. Do not suddenly stop taking your medicine because you may develop a severe reaction. Your body becomes used to the medicine. This does NOT mean you are addicted. Addiction is a behavior related to getting and using a drug for a non medical reason. If you have pain, you have a medical reason to take pain medicine. Your doctor will tell you how much medicine to take. If your doctor wants you to stop the medicine, the dose will be slowly lowered over time to avoid any side effects. You may get drowsy or dizzy. Do not drive, use machinery, or do anything that needs mental alertness until you know how this medicine affects you. Do not stand or sit up quickly, especially if you are an older patient. This reduces the risk of dizzy or fainting spells. Alcohol may interfere with the effect of this medicine. Avoid alcoholic drinks. There are different types of narcotic medicines (opiates) for pain. If you take more than one type at the same time, you may have more side effects. Give your health care provider a list of all medicines you use. Your doctor will tell you how much medicine to take. Do not take more medicine than directed. Call emergency for help if you have problems breathing. The medicine will cause constipation. Try to have a bowel movement at least every 2 to 3 days. If you do not have a bowel movement for 3 days, call your doctor or health senior care assistant. Do not take Tylenol (acetaminophen) or medicines that have acetaminophen with this medicine. Too much acetaminophen can be very dangerous. Many nonprescription medicines contain acetaminophen. Always read the labels carefully to avoid taking more acetaminophen. Immediately call your physician or get emergency help if you are breast-feeding and your baby is sleepier than usual, is limp, or has difficulty or breathing. Clindamycin Hydrochloride Oral capsule What is this medicine? CLINDAMYCIN (KLIN da SURINDER sin) is a lincosamide antibiotic. It is used to treat certain kinds of bacterial infections. It will not work for colds, flu, or other viral infections. How should I use this medicine? Take this medicine by mouth with a full glass of water. Follow the directions on the prescription label. You can take this medicine with food or on an empty stomach. If the medicine upsets your stomach, take it with food. Take your medicine at regular intervals. Do not take your medicine more often than directed. Take all of your medicine as directed even if you think your are better. Do not skip doses or stop your medicine early. Talk to your mop maker regarding the use of this medicine in children. Special care may be needed. What side effects may I notice from receiving this medicine? Side effects that you should report to your doctor or health senior care assistant as soon as possible: allergic reactions like skin rash, itching or hives, swelling of the face, lips, or tongue dark urine pain on swallowing redness, blistering, peeling or loosening of the skin, including inside the mouth unusual bleeding or bruising unusually weak or tired yellowing of eyes or skin Side effects that usually do not require medical attention (report to your doctor or health senior care assistant if they continue or are bothersome): diarrhea itching in the rectal or genital area joint pain nausea, vomiting stomach pain What may interact with this medicine? chloramphenicol erythromycin kaolin products What if I miss a dose? If you miss a dose, take it as soon as you can. If it is almost time for your next dose, take only that dose. Do not take double or extra doses. Where should I keep my medicine? Keep out of the reach of children. Store at room temperature between 20 and 25 degrees C (68 and 77 degrees F). Throw away any unused medicine after the expiration date. What should I tell my health care provider before I take this medicine? They need to know if you have any of these conditions: kidney disease liver disease stomach problems like colitis an unusual or allergic reaction to clindamycin, lincomycin, or other medicines, foods, dyes like tartrazine or preservatives or trying to get breast-feeding What should I watch for while using this medicine? Tell your doctor or healthcare professional if your symptoms do not start to get better or if they get worse. Do not treat diarrhea with over the counter products. Contact your doctor if you have diarrhea that lasts more than 2 days or if it is severe and watery. You have been given the following additional information: Dental Pain Acetaminophen, Codeine Phosphate Oral tablet Clindamycin Hydrochloride Oral capsule (Electronically signed by Yazmin Calderon A.R.N.P. 01/14/2017 22:47)
--- NOTE | 2017-01-16 08:38 | ED MED RECONCILIATION SUMMARY ---
Patient: MIR ROGERS Medication Reconciliation Report [facility] VisitID: [id number] [address] [place] [address] 31y, F Registration Date/Time: 01/14/2017 Weight: 102.5 kg Height/Length: 64 in. BMI: 38.8 ALLERGIES: PCN The patient's Home Medications are listed below: THE FOLLOWING MEDICATIONS NEED TO BE RECONCILED: Ibuprofen Oral Vicodin Oral 5 mg, PRN The source(s) of the original Home Medication information: patient The following Medications were given to the patient in the Emergency Department: None. The following Medications were prescribed to the patient: Tylenol with Codeine #3 (30 mg / 300 mg): take 1 tablet every 4 hours as needed for pain. Dispense fifteen (15). No refills. Substitution is permissible. -- Yazmin Calderon A.R.N.P. Cleocin 300 mg: take 1 capsule orally every 6 hours for 7 days. No refills. Substitution is permissible. -- Yazmin Calderon A.R.N.P.
--- NOTE | 2017-01-16 08:38 | ED MAR SUMMARY ---
..... Medication Administration Record [facility] [address], [place] [id number] Patient: MIR ROGERS Visit ID: [id number] 31y, F Weight: 102.5 kg Height/Length: 64 in BMI: 38.8 ALLERGIES: PCN
== END 2017-01-14 21:48 | disposition home or self-care (01) ==
LOC: ED SRH 21:13
DX: K08.89 Other specified disorders of teeth and supporting structures (principal); F17.210 Nicotine dependence, cigarettes, uncomplicated

== ENCOUNTER 2017-03-12 19:29 | Emergency (ER) | payer OTHER ==
--- NOTE | 2017-03-12 21:27 | ED ORDER SUMMARY ---
..... Patient: MIR ROGERS OrderSheet [facility] VisitID: [id number] [address] [place] [address] 31y, F Registration Date/Time: 03/12/2017 ORDER SHEET Weight: 106.1 kg Allergies: PCN GENERAL ORDERS: Urine Urgent (19:42 03/12/2017 TBowen R.N. per protocol) (19:42 TBowen R.N.) Other UA-Culture if indicated Urgent (19:42 03/12/2017 TBowen R.N. per protocol) (19:42 TBowen R.N.) Other CBC w Diff Urgent (19:56 03/12/2017 HBivens A.R.N.P.) (Ack 19:58 AMcQuoid ER Tech1) CMP Urgent (19:56 03/12/2017 HBivens A.R.N.P.) (Ack 19:58 AMcQuoid ER Tech1) Amylase Urgent (19:56 03/12/2017 HBivens A.R.N.P.) (Ack 19:58 AMcQuoid ER Tech1) Lipase Urgent (19:56 03/12/2017 HBivens A.R.N.P.) (Ack 19:58 AMcQuoid ER Tech1) MEDICATION ORDERS: IV FLUIDS: IV NS : initial bolus 1000 mL (1000 mL/hr), then none - (NOW) (:56 03/12/2017 HBivens A.R.N.P.) (Ack 20:07 HSoule) (20:20 HSoule) Toradol IV 30 mg (NOW) (19:56 03/12/2017 HBivens A.R.N.P.) (Ack 20:07 HSoule) (20:20 HSoule) Zofran IV 4 mg (NOW) (:56 03/12/2017 HBivens A.R.N.P.) (Ack 20:07 HSoule) (20:20 HSoule) IV Saline Lock (:56 03/12/2017 HBivens A.R.N.P.) (Ack 20:07 HSoule) (20:19 HSoule) ORDER SHEET NOTES: [Electronically signed by Audra Amezquita R.N. (21:35 03/12/2017)] [Electronically signed by Audra Amezquita R.N. (:35 03/12/2017)] [Electronically signed by Yazmin Calderon (22:57 03/12/2017)] [Electronically locked/signed by Audra Amezquita R.N. (21:35 03/12/2017)]
--- NOTE | 2017-03-12 21:27 | ED CLINICAL REPORT ---
Clinical Report - Physicians/Mid Levels [facility] [address] [place] [address] 03/12/2017 19:30 Patient: MIR ROGERS Time Seen: 19:42; initial patient contact, initial documentation, patient care assumed. Arrived- By private vehicle. Historian- patient. HISTORY OF PRESENT ILLNESS Chief Complaint: ABDOMINAL PAIN. This started today and is still present. At its maximum, severity described as severe. When seen in the E.D., severity described as severe. Modifying factors. Not worsened by anything. Not relieved by anything. It is described as "pain". It is described as located in the right flank and the right lower quadrant, right pelvis, left lower quadrant and left pelvis. It is described as located in the left flank, in the lower abdomen and in the pelvic area and radiating to the abdomen. The patient has had nausea. No loss of appetite or diarrhea. She has had moderate vomiting. The vomiting has occurred several times and has been bilious. No feculent emesis, blood-tinged emesis, coffee-grounds emesis, frankly bloody emesis or unusually dark emesis. No recent travel. Similar symptoms previously: As bad. ( feels similar to when she had ovarian cyst). Recent medical care: Not recently seen/assessed. REVIEW OF SYSTEMS No constipation, black stools, hematemesis, difficulty with urination or pain with urination. No urinary frequency, bloody stools, fever, chest pain or difficulty breathing. Denies current . All systems otherwise negative, except as recorded above. PAST HISTORY See nurses notes. PROBLEMS: Ovarian Cyst. Anxiety Reaction. Back Pain. Anemia. Sciatica. Migraine Headache. Paronychia. Abscess. Cellulitis. Hematuria. --19:38 Trini Zamudio. ADDITIONAL SURGERIES: Appendectomy. . --19:38 Trini Zamudio. SOCIAL HISTORY Light tobacco smoker. No alcohol use or drug use. No recent travel. Is a local resident. FAMILY HISTORY Negative. ADDITIONAL NOTES The nursing notes have been reviewed with agreement regarding the chief complaint, HPI, ROS, PMH and patient medications and allergies. PHYSICAL EXAM Vital Signs: 03/12/2017 19:36 BP: 115/72. HR: 117. RR: 18. O2 saturation: 98%. Temp: 98 F. Pain level now: 07/13. Have been reviewed as normal and appear to be correct. Blood pressure normal. Tachycardic. Respiratory rate normal. Temperature normal. Oxygen saturation normal. Appearance: Alert. Oriented X3. No acute distress. Eyes: Pupils equal, round and reactive to light. Eyes normal inspection. Neck: Normal inspection. Neck supple. CVS: Normal heart rate and rhythm. Heart sounds normal. Pulses normal. Respiratory: No respiratory distress. Breath sounds normal. Chest nontender. Abdomen: Soft and nontender. Bowel sounds normal. No organomegaly. No mass. Mildly obese. Back: Normal inspection. Skin: Skin warm and dry. Normal skin color. No rash. Normal skin turgor. Extremities: Extremities exhibit normal ROM. No lower extremity edema. Neuro: Oriented X 3. No motor deficit. No sensory deficit. LABS, X-RAYS, AND EKG Laboratory Tests: UA-Culture if indicated: (RONIT: 03/12/2017 19:40) ( MsgRcvd 03/12/2017 20:09) Final results Test Result Flag Units (Reference) URINE COLOR YELLOW URINE APPEARANCE CLEAR URINE GLUCOSE NEGATIVE (NEGATIVE) URINE BILIRUBIN NEGATIVE (NEGATIVE) URINE KETONE TRACE (NEGATIVE) URINE SPECIFIC GRAVITY 1.025 (1.010-1.030) URINE PH 6.0 (5.0-8.0) URINE PROTEIN NEGATIVE (NEGATIVE) URINE UROBILINOGEN 0.2 EU/dL (0.2-1.0) URINE NITRITE NEGATIVE (NEGATIVE) URINE BLOOD NEGATIVE (NEGATIVE) URINE LEUK ESTERASE NEGATIVE (NEGATIVE) URINE RBC NONE SEEN rbc/hpf (0-1) URINE WBC 0-1 wbc/hpf (0-1) URINE EPITHELIAL CELLS 0-1 EPI/hpf (0-5) URINE BACTERIA NONE SEEN (NONE SEEN) URINE COMMENT CULT NOT INDICATED URINE CULTURES ARE SET-UP BASED ON THE FOLLOWING CRITERIA:POSITIVE NITRITEPOSITIVE LEUKOCYTE ESTERASEGREATER THAN 10 WHITE BLOOD CELLSMODERATE (2+) OR GREATER BACTERIA Urine: (RONIT: 03/12/2017 19:40) ( MsgRcvd 03/12/2017 19:51) Final results Test Result Flag Units (Reference) URINE NEGATIVE CBC w Diff: (RONIT: 03/12/2017 20:20) ( MsgRcvd 03/12/2017 20:49) Final results Test Result Flag Units (Reference) WHITE BLOOD COUNT 9.6 K/uL (4.5-11.5) RED BLOOD COUNT 4.60 M/uL (4.00-5.20) HEMOGLOBIN 13.5 gm/dL (12.0-16.0) HEMATOCRIT 39.9 % (36.0-46.0) MEAN CELL VOLUME 87 fL (80-100) MEAN CORPUSCULAR HGB 29 pg (26-34) MEAN CORPUSCULAR HGB CONC 34 g/dL (31-37) RED CELL DISTRIBUTION WIDTH 13.0 % (11.6-14.8) PLATELET COUNT 281 K/uL (150-400) NEUTROPHIL % 85.6 H % (50-75) LYMPH % 7.8 L % (25-40) MONO % 5.8 % (3-14) EOSINOPHIL % 0.6 % (0-4) BASOPHIL % 0.2 % (0-2) CMP: (RONIT: 03/12/2017 20:20) ( MsgRcvd 03/12/2017 20:46) Final results Test Result Flag Units (Reference) GLUCOSE 103 mg/dL (70-110) BUN 12 mg/dL (7-18) CREATININE 0.7 mg/dL (0.6-1.3) Estimated GFR >60 mL/min Estimated GFR- >60 mL/min Note: Persistent reduction over 3 months in eGFR<60 mL/min/1.73 m2 defines CKD. Patients with eGFR values>=60 mL/min/1.73 m2 may also have CKD if evidence ofpersistent proteinuria. Additional information may be foundat www.kidney.org. SODIUM 140 mmol/L (136-145) POTASSIUM 3.6 mmol/L (3.5-5.1) CHLORIDE 104 mmol/L (98-107) CARBON DIOXIDE 21 mmol/L (21-32) CALCIUM 8.2 L mg/dL (8.5-10.1) TOTAL PROTEIN 7.8 g/dL (6.4-8.2) ALBUMIN 3.7 g/dL (3.3-5.0) BILIRUBIN, TOTAL 0.4 mg/dL (0.0-1.0) ALKALINE PHOSPHATASE 89 U/L (46-116) AST (SGOT) 19 U/L (15-37) ALT (SGPT) 34 U/L (12-78) LIPASE 89 U/L (73-393) AMYLASE 30 U/L (25-115) . PROGRESS AND PROCEDURES Patient counseled in person regarding the patient's stable condition and diagnosis. Differential Diagnosis: I considered gastritis, gastroenteritis, peptic ulcer disease, gastroesophageal reflux disease, acute appendicitis, mesenteric lymphadenitis, diverticulitis, colon cancer, ulcerative colitis, biliary colic, cholecystitis, cholelithiasis, hepatitis, pancreatitis, urinary tract infection, ureterolithiasis, and viral syndrome as a possible cause of abdominal pain in this patient. This is a partial list of diagnoses considered. Above considerations are based on history, physical exam, reassessment and laboratory data. Differential diagnosis was discussed with patient. Disposition: Discharged home in good and improved condition (21:26). Condition: good and stable. CLINICAL IMPRESSION Intractable vomiting with nausea and dehydration. No volume depletion. Not bilious. Acute noninfectious gastroenteritis. INSTRUCTIONS Take clear liquids only (frequent sips) for the next 24 hours until better. May continue medications with sips only. Advance diet as tolerated. Avoid. Warnings: GENERAL WARNINGS: Return or contact your physician immediately if your condition worsens or changes unexpectedly, if not improving as expected, or if other problems arise. SPECIFICALLY, return if you develop pain in the abdomen or pelvis, fever, the inability to keep fluids down, blood in vomitus, blood in diarrhea, fainting or lightheadedness. Prescription Medications: Zofran 4 mg: Take 1 orally every six hours as needed for nausea/vomiting. Dispense ten (10). No refills. Substitution is permissible. Bentyl 20 mg tablets: take 1 orally every 6 hours as needed. Dispense thirty (30). No refills. Substitution is permissible. Ultram 50 mg tablets: take 1-2 orally every 6 hours as needed for pain. Dispense twenty (20). No refills. Substitution is permissible. Follow-up: Follow up with your doctor in about two days even if well. Call for an appointment. Summary of care provided to patient. Understanding of the discharge instructions verbalized by patient. (Electronically signed by Yazmin Calderon A.R.N.P. 03/12/2017 22:57)
--- NOTE | 2017-03-12 21:27 | ED NURSING NOTES ---
Clinical Report - Nurses [facility] [address] [place] [address] 03/12/2017 19:30 Patient: MIR ROGERS TRIAGE Triage time 19:36. Acuity: LEVEL 3. Chief Complaint: ABDOMINAL PAIN, NAUSEA and VOMITING. --19:40 Anthony ZamudioN. 19:36 03/12/17. BP: 115/72. HR: 117. RR: 18. O2 saturation: 98%. Temp: 98 F. Pain level now: 07/13. --19:40 Robb R.N. Weight: 106.1 kg. Height/Length: 64 inches. BMI: 40.2. --19:39 Robb R.N. Medications None. --19:38 Robb R.N. Allergies PCN. --19:37 Robb R.N. History Arrived by private vehicle. Historian: patient. This started today. ( pt complains of flank pain on both side that goes around to the abd, pt states she feels like she is being stabbed). 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 PAST MEDICAL HX: Immunizations: up-to-date. Last normal menstrual period was 1 week ago- months ago. SOCIAL HX: Light tobacco smoker- less than 1/2 a pack per day. No alcohol use or drug use. No recent travel. No infectious disease exposure. No known contact with a sick individual. SELF HARM ASSESSMENT: A self harm assessment was performed. The patient answered "no" to the question "Have you recently felt down, depressed, or hopeless?", "Have you noticed less interest or pleasure in doing things?", "Do you have thoughts of harming or killing yourself?", "Are you here because you tried to hurt yourself?", "Have you ever tried to hurt yourself before today?", "Have you recently had thoughts about harming or killing others?" and "Do you have any dangerous items in your possession?". FALL RISK ASSESSMENT: Fall risk assessment completed. No fall risk identified. NUTRITIONAL RISK ASSESSMENT: The nutritional risk assessment revealed no deficiencies. FUNCTIONAL ASSESSMENT: Functional assessment: no impairments noted. LEARNING NEEDS ASSESSMENT: The learning needs assessment revealed no barriers. ABUSE ASSESSMENT: Abuse assessment: The patient was asked "Do you feel safe in your home?". SKIN INTEGRITY ASSESSMENT: Skin integrity risk assessment completed. No skin integrity risk identified. --19:40 Robb R.N. PROBLEMS: Ovarian Cyst. Anxiety Reaction. Back Pain. Anemia. Sciatica. Migraine Headache. Paronychia. Abscess. Cellulitis. Hematuria. --19:38 Robb R.N. ADDITIONAL SURGERIES: Appendectomy. . --19:38 Robb R.N. Interventions ID band on patient. To treatment room. --19:40 Anthony aZmudioN. PHYSICAL ASSESSMENT Ambulatory to room. GENERAL / NEURO / PSYCH: Alert. Oriented X 4. Appears in no acute distress. HEENT: Mucous membranes are pink. RESPIRATORY: Respirations not labored. Breath sounds within normal limits. CVS: Normal sinus rhythm noted. Capillary refill less than 2 seconds. GI / : The patient has had nausea. Emesis noted. Abdomen soft. Abdominal tenderness. Bowel sounds within normal limits. SKIN: Skin is warm and dry. --19:41 Robb RLucia. NURSING PROGRESS NOTES Patient gowned. Patient identifiers checked. Call light placed in reach. Side rails up x 1. Bed placed in lowest position. Brakes of bed on. --19:41 Robb R.N. 20:19 03/12/2017 Site #1 started via IV in the right antecubital space with an 20g angiocath, with aseptic technique and good blood return; one attempt. Blood drawn: rainbow set. Labeled in the presence of the patient and sent to the lab. Saline lock flushed with 10 mL saline. --20:19 Dorothy Stanley 20:20 03/12/2017 Started bag #1 1000 mL IV Fluids IV NS (Saline); at 1000 mL/hr over 1 hour(s) via site #1. Allergies verified and confirmed 5 rights. IV patency established. IV site checked: no pain, redness, or swelling. IV flushed thoroughly pre- and post-medication administration. --20:20 Dorothy Stanley 20:20 03/12/2017 Toradol IVP 30 mg given over 1 minute(s) via site #1. Allergies verified and confirmed 5 rights. IV patency established. IV site checked: no pain, redness, or swelling. IV flushed thoroughly pre- and post-medication administration. IVP given by RN. --20:20 Ricarda Stanleyh 20:20 03/12/2017 Zofran (Ondansetron HCl) IVP 4 mg given over 1 minute(s) via site #1. Allergies verified and confirmed 5 rights. IV patency established. IV site checked: no pain, redness, or swelling. IV flushed thoroughly pre- and post-medication administration. IVP given by RN. --20:20 Jaden Dorothy 21:29 03/12/2017 IV Fluids IV NS Discontinued: bag #1. Total amount infused: 1000 mL. IV patency established. IV site checked: no pain, redness, or swelling. IV flushed thoroughly. --:29 Mikie Zamudio Patient ID band checked for patient name and birthdate: patient confirmed. Clean catch urine collected with return of yellow-colored urine; sample sent to lab for urinalysis. Specimen labeled in the presence of the patient. --21:35 Mikie Zamudio DISPOSITION / DISCHARGE 21:33 03/12/2017 Site #1 removed upon discharge. Catheter intact. Bandaid applied. --21:33 Mikie Zamudio Departure time: 21:34. Condition at departure: improved. No learning barriers present. Discharge instructions provided and reviewed with the patient. Reviewed medication(s) side effects, precautions, dosing and course information. Prescription(s) given to the patient. Reviewed referral to a primary care physician. Patient verbalized understanding. Written instructions provided in Faroese. No warning instructions, treatment instructions, diet instructions, activity restrictions or follow up contact number given. No stop smoking instructions. No work note given. The patient was discharged by the nurse practitioner. She was discharged home and accompanied by spouse. She left the Emergency Department ambulatory and via private vehicle. Spouse driving. FALL RISK ASSESSMENT: Fall risk assessment completed. No fall risk identified. --21:34 Mikie Zamudio 21:34 03/12/17. BP: 119/68. HR: 72. RR: 16. O2 saturation: 99%. Temp: deferred. Pain level now: . --21:35 Trini Zamudio. Locked/Released at 03/12/2017 21:35 by Mikie Zamudio
--- NOTE | 2017-03-12 21:27 | ED ORDER SUMMARY ---
..... Patient: MIR ROGERS OrderSheet [facility] VisitID: [id number] [address] [place] [address] 31y, F Registration Date/Time: 03/12/2017 ORDER SHEET Weight: 106.1 kg Allergies: PCN GENERAL ORDERS: Urine Urgent (19:42 03/12/2017 TBowen R.N. per protocol) (19:42 TBowen R.N.) Other UA-Culture if indicated Urgent (19:42 03/12/2017 TBowen R.N. per protocol) (19:42 TBowen R.N.) Other CBC w Diff Urgent (19:56 03/12/2017 HBivens A.R.N.P.) (Ack 19:58 AMcQuoid ER Tech1) CMP Urgent (19:56 03/12/2017 HBivens A.R.N.P.) (Ack 19:58 AMcQuoid ER Tech1) Amylase Urgent (19:56 03/12/2017 HBivens A.R.N.P.) (Ack 19:58 AMcQuoid ER Tech1) Lipase Urgent (19:56 03/12/2017 HBivens A.R.N.P.) (Ack 19:58 AMcQuoid ER Tech1) MEDICATION ORDERS: IV FLUIDS: IV NS : initial bolus 1000 mL (1000 mL/hr), then none - (NOW) (:56 03/12/2017 HBivens A.R.N.P.) (Ack 20:07 HSoule) (20:20 HSoule) Toradol IV 30 mg (NOW) (19:56 03/12/2017 HBivens A.R.N.P.) (Ack 20:07 HSoule) (20:20 HSoule) Zofran IV 4 mg (NOW) (:56 03/12/2017 HBivens A.R.N.P.) (Ack 20:07 HSoule) (20:20 HSoule) IV Saline Lock (:56 03/12/2017 HBivens A.R.N.P.) (Ack 20:07 HSoule) (20:19 HSoule) ORDER SHEET NOTES: [Electronically signed by Audra Amezquita R.N. (21:35 03/12/2017)] [Electronically signed by Audra Amezquita R.N. (:35 03/12/2017)] [Electronically signed by Yazmin Calderon (22:57 03/12/2017)] [Electronically locked/signed by Audra Amezquita R.N. (21:35 03/12/2017)]
--- NOTE | 2017-03-12 21:27 | ED NURSING NOTES ---
Clinical Report - Nurses [facility] [address] [place] [address] 03/12/2017 19:30 Patient: MRI ROGERS TRIAGE Triage time 19:36. Acuity: LEVEL 3. Chief Complaint: ABDOMINAL PAIN, NAUSEA and VOMITING. --19:40 Anthony ZamudioN. 19:36 03/12/17. BP: 115/72. HR: 117. RR: 18. O2 saturation: 98%. Temp: 98 F. Pain level now: 07/13. --19:40 Robb R.N. Weight: 106.1 kg. Height/Length: 64 inches. BMI: 40.2. --19:39 Robb R.N. Medications None. --19:38 Robb R.N. Allergies PCN. --19:37 Robb R.N. History Arrived by private vehicle. Historian: patient. This started today. ( pt complains of flank pain on both side that goes around to the abd, pt states she feels like she is being stabbed). Treatment USER EXPERIENCE LEAD: None. PAST MEDICAL HX: Immunizations: up-to-date. Last normal menstrual period was 1 week ago- months ago. SOCIAL HX: Light tobacco smoker- less than 1/2 a pack per day. No alcohol use or drug use. No recent travel. No infectious disease exposure. No known contact with a sick individual. SELF HARM ASSESSMENT: A self harm assessment was performed. The patient answered "no" to the question "Have you recently felt down, depressed, or hopeless?", "Have you noticed less interest or pleasure in doing things?", "Do you have thoughts of harming or killing yourself?", "Are you here because you tried to hurt yourself?", "Have you ever tried to hurt yourself before today?", "Have you recently had thoughts about harming or killing others?" and "Do you have any dangerous items in your possession?". FALL RISK ASSESSMENT: Fall risk assessment completed. No fall risk identified. NUTRITIONAL RISK ASSESSMENT: The nutritional risk assessment revealed no deficiencies. FUNCTIONAL ASSESSMENT: Functional assessment: no impairments noted. LEARNING NEEDS ASSESSMENT: The learning needs assessment revealed no barriers. ABUSE ASSESSMENT: Abuse assessment: The patient was asked "Do you feel safe in your home?". SKIN INTEGRITY ASSESSMENT: Skin integrity risk assessment completed. No skin integrity risk identified. --19:40 Robb R.N. PROBLEMS: Ovarian Cyst. Anxiety Reaction. Back Pain. Anemia. Sciatica. Migraine Headache. Paronychia. Abscess. Cellulitis. Hematuria. --19:38 Robb R.N. ADDITIONAL SURGERIES: Appendectomy. . --19:38 Robb R.N. Interventions ID band on patient. To treatment room. --19:40 Anthony ZamudioN. PHYSICAL ASSESSMENT Ambulatory to room. GENERAL / NEURO / PSYCH: Alert. Oriented X 4. Appears in no acute distress. HEENT: Mucous membranes are pink. RESPIRATORY: Respirations not labored. Breath sounds within normal limits. CVS: Normal sinus rhythm noted. Capillary refill less than 2 seconds. GI / : The patient has had nausea. Emesis noted. Abdomen soft. Abdominal tenderness. Bowel sounds within normal limits. SKIN: Skin is warm and dry. --19:41 Robb RLucia. NURSING PROGRESS NOTES Patient gowned. Patient identifiers checked. Call light placed in reach. Side rails up x 1. Bed placed in lowest position. Brakes of bed on. --19:41 Robb R.N. 20:19 03/12/2017 Site #1 started via IV in the right antecubital space with an 20g angiocath, with aseptic technique and good blood return; one attempt. Blood drawn: rainbow set. Labeled in the presence of the patient and sent to the lab. Saline lock flushed with 10 mL saline. --20:19 Dorothy Stanley 20:20 03/12/2017 Started bag #1 1000 mL IV Fluids IV NS (Saline); at 1000 mL/hr over 1 hour(s) via site #1. Allergies verified and confirmed 5 rights. IV patency established. IV site checked: no pain, redness, or swelling. IV flushed thoroughly pre- and post-medication administration. --20:20 Dorothy Stanley 20:20 03/12/2017 Toradol IVP 30 mg given over 1 minute(s) via site #1. Allergies verified and confirmed 5 rights. IV patency established. IV site checked: no pain, redness, or swelling. IV flushed thoroughly pre- and post-medication administration. IVP given by RN. --20:20 Ricarda Stanleyh 20:20 03/12/2017 Zofran (Ondansetron HCl) IVP 4 mg given over 1 minute(s) via site #1. Allergies verified and confirmed 5 rights. IV patency established. IV site checked: no pain, redness, or swelling. IV flushed thoroughly pre- and post-medication administration. IVP given by RN. --20:20 Jaden Dorothy 21:29 03/12/2017 IV Fluids IV NS Discontinued: bag #1. Total amount infused: 1000 mL. IV patency established. IV site checked: no pain, redness, or swelling. IV flushed thoroughly. --:29 Mikie Zamudio Patient ID band checked for patient name and birthdate: patient confirmed. Clean catch urine collected with return of yellow-colored urine; sample sent to lab for urinalysis. Specimen labeled in the presence of the patient. --21:35 Mikie Zamudio DISPOSITION / DISCHARGE 21:33 03/12/2017 Site #1 removed upon discharge. Catheter intact. Bandaid applied. --21:33 Mikie Zamudio Departure time: 21:34. Condition at departure: improved. No learning barriers present. Discharge instructions provided and reviewed with the patient. Reviewed medication(s) side effects, precautions, dosing and course information. Prescription(s) given to the patient. Reviewed referral to a primary care physician. Patient verbalized understanding. Written instructions provided in Indonesian. No warning instructions, treatment instructions, diet instructions, activity restrictions or follow up contact number given. No stop smoking instructions. No work note given. The patient was discharged by the nurse practitioner. She was discharged home and accompanied by spouse. She left the Emergency Department ambulatory and via private vehicle. Spouse driving. FALL RISK ASSESSMENT: Fall risk assessment completed. No fall risk identified. --21:34 Mikie Zamudio 21:34 03/12/17. BP: 119/68. HR: 72. RR: 16. O2 saturation: 99%. Temp: deferred. Pain level now: . --21:35 Trini Zamudio. Locked/Released at 03/12/2017 21:35 by Mikie Zamudio
--- NOTE | 2017-03-12 22:58 | ED DISCHARGE INSTRUCTIONS ---
Patient: MIR ROGERS General Instructions [facility] VisitID: [id number] [place] [address] 31y, F Registration Date/Time: 03/12/2017 Intractable vomiting with nausea and dehydration. No volume depletion. Not bilious. Acute noninfectious gastroenteritis. INSTRUCTIONS Take clear liquids only (frequent sips) for the next 24 hours until better. May continue medications with sips only. Advance diet as tolerated. Avoid. Warnings: GENERAL WARNINGS: Return or contact your physician immediately if your condition worsens or changes unexpectedly, if not improving as expected, or if other problems arise. SPECIFICALLY, return if you develop pain in the abdomen or pelvis, fever, the inability to keep fluids down, blood in vomitus, blood in diarrhea, fainting or lightheadedness. Prescription Medications: Zofran 4 mg: Take 1 orally every six hours as needed for nausea/vomiting. Dispense ten (10). No refills. Substitution is permissible. Bentyl 20 mg tablets: take 1 orally every 6 hours as needed. Dispense thirty (30). No refills. Substitution is permissible. Ultram 50 mg tablets: take 1-2 orally every 6 hours as needed for pain. Dispense twenty (20). No refills. Substitution is permissible. Follow-up: Follow up with your doctor in about two days even if well. Call for an appointment. Summary of care provided to patient. Understanding of the discharge instructions verbalized by patient. ADDITIONAL INFORMATION Vomiting [6Yr-Adult] Vomiting is a common symptom that may be due to different causes. These include gastroenteritis ("stomach flu"), food poisoning and gastritis. There are other more serious causes of vomiting which may be hard to diagnose early in the illness. Therefore, it is important to watch for the warning signs listed below. The main danger from repeated vomiting is dehydration. This is due to excess loss of water and minerals from the body. When this occurs, body fluids must be replaced. Home Care: If symptoms are severe, rest at home for the next 24 hours. You may use acetaminophen (Tylenol) or ibuprofen (Motrin, Advil) to control fever, unless another medicine was prescribed. [NOTE : If you have chronic liver or kidney disease or ever had a stomach ulcer or GI bleeding, talk with your doctor before using these medicines.] (Aspirin should never be used in anyone under 18 years of age who is ill with a fever. It may cause severe liver damage.) Avoid tobacco and alcohol use, which may worsen your symptoms. If medicines for vomiting were prescribed, take as directed. Once vomiting stops, then follow these guidelines: During The First 12-24 Hours follow the diet below: FRUIT JUICES: Apple, grape juice, clear fruit drinks, and electrolyte replacement drinks. BEVERAGES: Soft drinks without caffeine; mineral water (plain or flavored), decaffeinated tea and coffee. SOUPS: Clear broth, consomm and bouillon DESSERTS: Plain gelatin, popsicles and fruit juice bars. As you feel better, you may add 6-8 ounces of yogurt per day. During The Next 24 Hours you may add the following to the above: Hot cereal, plain toast, bread, rolls, crackers Plain noodles, rice, mashed potatoes, chicken noodle or rice soup Unsweetened canned fruit (avoid pineapple), bananas Limit caffeine and chocolate. No spices or seasonings except salt. During The Next 24 Hours Gradually resume a normal diet, as you feel better and your symptoms lessen. Follow Up with your doctor as advised if you are not improving over the next 2-3 days. Get Prompt Medical Attention if any of the following occur: Constant right-sided lower abdominal pain or increasing general abdominal pain Continued vomiting (unable to keep liquids down) for 24 hours Frequent diarrhea (more than 5 times a day); blood (red or black color) or mucus in diarrhea Reduced urine output or extreme thirst Weakness, dizziness or fainting Unusually drowsy or confused Fever of 100.4F (38C) oral or higher, not better with fever medication Yellow color of the eyes or skin Gastroenteritis [Non-Infectious, 6 Yr-Adult] Your symptoms today are coming from the intestinal tract. This may occur as a result of food sensitivity, inflammation of the GI tract, medicines, stress or other causes not related to infection. This may last from 1-3 days. Antibiotics are not effective, but simple home treatment will be helpful. Home Care: If symptoms are severe, rest at home for the next 24 hours. You may use acetaminophen (Tylenol) or ibuprofen (Motrin, Advil) to control fever, unless another medicine was prescribed. [NOTE: If you have chronic liver or kidney disease or ever had a stomach ulcer or GI bleeding, talk with your doctor before using these medicines.] (Aspirin should never be used in anyone under 18 years of age who is ill with a fever. It may cause severe liver damage.) Avoid tobacco and alcohol use, which may make your symptoms worse. If medicines for diarrhea or vomiting were prescribed, take only as directed. Once vomiting stops, then follow these guidelines: During The First 12-24 Hours follow the diet below: gingerale, mineral water (plain or flavored), decaffeinated tea and coffee. During The Next 24 Hours you may add the following to the above: DURING THE NEXT 24 HOURS Gradually resume a normal diet, as you feel better and your symptoms lessen. Follow Up with your doctor as advised if you are not improving over the next 2-3 days. If a stool (diarrhea) sample was taken, you may call in 2 days (or as directed) for the results. Get Prompt Medical Attention if any of the following occur: Increasing abdominal pain or constant lower right abdominal pain Continued vomiting (unable to keep liquids down) Frequent diarrhea (more than 5 times a day) Blood in vomit or stool (black or red color) Reduced oral intake Dark urine, reduced urine output Weakness, dizziness, fainting Drowsiness, confusion, stiff neck or seizure Fever of 100.4F (38C) or higher, or as directed by your healthcare provider New rash Clear Liquid Diet Clear liquids are any liquid that you can see through as well as those that are very easy to digest. This is used while the body is recovering from irritation or infection of the stomach or intestinal tract. It may also be used before special procedures or surgery. This diet is to be used no more than three days. You may include the following items. Adults Adults should drink a total of 23 quarts of liquid per day. It may be easier to drink small frequent servings rather than a few large ones. Liquids can include: Fruit juices.Strained orange juice or lemonade (no pulp), apple, grape and cranberry juice, clear fruit drinks, sports drinks Beverages.Sport drinks, sodas, mineral water (plain or flavored), tea, black coffee, liquid gelatin (add twice the recommended amount of water) Soups.Clear broth, consomm, bouillon Desserts.Plain gelatin, popsicles, fruit juice bars Children Over 2 years old The following liquids are acceptable for children over age 2: Fruit juices.Strained orange juice or lemonade (no pulp), apple, grape and cranberry juice, clear fruit drinks Beverages. Sports drinks, sodas, mineral water (plain or flavored), tea, liquid gelatin (add twice the recommended amount of water) Soups. Clear broth, consomm, bouillon Desserts. Plain gelatin, popsicles, fruit juice bars Children under 2 years old Oral rehydration fluids such are available at drug stores and most grocery stores without a prescription. [place] Diet A bland diet is used for patients with an upset stomach. It consists of foods that are mild and easy to digest. It is better to eat small frequent meals rather than three large meals a day. BEVERAGES OK: Fruit juices, non-caffeinated teas and coffee, non-carbonated canales AVOID: Carbonated beverage, caffeinated tea and coffee, all alcoholic beverages BREAD OK: Refined white, wheat or rye bread, maura or soda crackers, [place] toast, plain rolls, bagels AVOID: Whole-grain bread CEREAL OK: Refined cereals: cooked or ready to eat AVOID: Whole grain cereals and granola, or those containing bran, seeds or nuts DESSERTS OK: Peanut butter and all others except those to "avoid" AVOID: Chocolate, cocoa, coconut, popcorn, nuts, seeds, jam, marmalade FRUITS OK: Canned, cooked, frozen or fresh fruits without seeds or tough skin AVOID: Olives, skin and seeds of fruit MEATS OK: All fresh or preserved meat, fish and fowl AVOID: Any that are prepared with those spices to "avoid" CHEESE & EGGS OK: Eggs, cottage cheese, cream cheese, other cheeses AVOID: All cheeses made with those spices to "avoid" POTATOES & PASTA OK: Potato, rice, macaroni, noodles, spaghetti AVOID: None SOUPS OK: All soups without heavy seasoning AVOID: Soups made with those spices to "avoid" VEGETABLES OK: Canned, cooked, fresh or frozen mildly flavored vegetables without seeds, skins or coarse fiber AVOID: Vegetables prepared with those spices to "avoid"; skin and seeds of vegetables and those with coarse fiber SPICES OK: Salt, lemon and [place] juice, vinegar, all extracts, [place], cinnamon, thyme, mace, allspice, paprika AVOID: [place] powder, cloves, pepper, seed spices, garlic, gravy pickles, highly seasoned salad dressings Clear Liquid Diet Clear liquids are any liquid that you can see through as well as those that are very easy to digest. This is used while the body is recovering from irritation or infection of the stomach or intestinal tract. It may also be used before special procedures or surgery. This diet is to be used no more than three days. You may include the following items. Adults Adults should drink a total of 23 quarts of liquid per day. It may be easier to drink small frequent servings rather than a few large ones. Liquids can include: Fruit juices.Strained orange juice or lemonade (no pulp), apple, grape and cranberry juice, clear fruit drinks, sports drinks Beverages.Sport drinks, sodas, mineral water (plain or flavored), tea, black coffee, liquid gelatin (add twice the recommended amount of water) Soups.Clear broth, consomm, bouillon Desserts.Plain gelatin, popsicles, fruit juice bars Children Over 2 years old The following liquids are acceptable for children over age 2: Fruit juices.Strained orange juice or lemonade (no pulp), apple, grape and cranberry juice, clear fruit drinks Beverages. Sports drinks, sodas, mineral water (plain or flavored), tea, liquid gelatin (add twice the recommended amount of water) Soups. Clear broth, consomm, bouillon Desserts. Plain gelatin, popsicles, fruit juice bars Children under 2 years old Oral rehydration fluids such are available at drug stores and most grocery stores without a prescription. Ondansetron Oral disintegrating tablet What is this medicine? ONDANSETRON (on MARY se mac) is used to treat nausea and vomiting caused by chemotherapy. It is also used to prevent or treat nausea and vomiting after surgery. How should I use this medicine? These tablets are made to dissolve in the mouth. Do not try to push the tablet through the foil backing. With dry hands, peel away the foil backing and gently remove the tablet. Place the tablet in the mouth and allow it to dissolve, then swallow. While you may take these tablets with water, it is not necessary to do so. Talk to your curing bin operator regarding the use of this medicine in children. Special care may be needed. What side effects may I notice from receiving this medicine? Side effects that you should report to your doctor or health laboratory animal care veterinarian as soon as possible: allergic reactions like skin rash, itching or hives, swelling of the face, lips, or tongue breathing problems dizziness fast or irregular heartbeat feeling faint or lightheaded, falls fever and chills swelling of the hands and feet tightness in the chest Side effects that usually do not require medical attention (report to your doctor or health laboratory animal care veterinarian if they continue or are bothersome): constipation or diarrhea headache What may interact with this medicine? Do not take this medicine with any of the following medications: -apomorphine -cisapride -dofetilide -dronedarone -pimozide -thioridazine -ziprasidone This medicine may also interact with the following medications: -carbamazepine -phenytoin -rifampicin -tramadol -other medicines that prolong the QT interval (cause an abnormal heart rhythm) What if I miss a dose? If you miss a dose, take it as soon as you can. If it is almost time for your next dose, take only that dose. Do not take double or extra doses. Where should I keep my medicine? Keep out of the reach of children. Store between 2 and 30 degrees C (36 and 86 degrees F). Throw away any unused medicine after the expiration date. What should I tell my health care provider before I take this medicine? They need to know if you have any of these conditions: heart disease history of irregular heartbeat liver disease low levels of magnesium or potassium in the blood an unusual or allergic reaction to ondansetron, granisetron, other medicines, foods, dyes, or preservatives or trying to get breast-feeding What should I watch for while using this medicine? Check with your doctor or health laboratory animal care veterinarian as soon as you can if you have any sign of an allergic reaction. Dicyclomine Hydrochloride Oral tablet What is this medicine? DICYCLOMINE (dye [place]ARC[place]) is used to treat bowel problems including irritable bowel syndrome. How should I use this medicine? Take this medicine by mouth with a glass of water. Follow the directions on the prescription label. It is best to take this medicine on an empty stomach, 30 minutes to 1 hour before meals. Take your medicine at regular intervals. Do not take your medicine more often than directed. Talk to your curing bin operator regarding the use of this medicine in children. Special care may be needed. While this drug may be prescribed for children as young as 6 months of age for selected conditions, precautions do apply. Patients over 65 years old may have a stronger reaction and need a smaller dose. What side effects may I notice from receiving this medicine? Side effects that you should report to your doctor or health laboratory animal care veterinarian as soon as possible: agitation, nervousness, confusion difficulty swallowing dizziness, drowsiness fast or slow heartbeat hallucinations pain or difficulty passing urine Side effects that usually do not require medical attention (report to your doctor or health laboratory animal care veterinarian if they continue or are bothersome): constipation headache nausea or vomiting sexual difficulty What may interact with this medicine? amantadine antacids benztropine digoxin disopyramide medicines for allergies, colds and breathing difficulties medicines for alzheimer's disease medicines for anxiety or sleeping problems medicines for depression or psychotic disturbances medicines for diarrhea medicines for pain metoclopramide tegaserod What if I miss a dose? If you miss a dose, take it as soon as you can. If it is almost time for your next dose, take only that dose. Do not take double or extra doses. Where should I keep my medicine? Keep out of the reach of children. Store at room temperature below 30 degrees C (86 degrees F). Protect from light. Throw away any unused medicine after the expiration date. What should I tell my health care provider before I take this medicine? They need to know if you have any of these conditions: difficulty passing urine esophagus problems or heartburn glaucoma heart disease, or previous heart attack myasthenia gravis prostate trouble stomach infection, or obstruction ulcerative colitis an unusual or allergic reaction to dicyclomine, other medicines, foods, dyes, or preservatives or trying to get breast-feeding What should I watch for while using this medicine? You may get drowsy, dizzy, or have blurred vision. Do not drive, use machinery, or do anything that needs mental alertness until you know how this medicine affects you. To reduce the risk of dizzy or fainting spells, do not sit or stand up quickly, especially if you are an older patient. Alcohol can make you more drowsy, avoid alcoholic drinks. Stay out of bright light and wear sunglasses if this medicine makes your eyes more sensitive to light. Avoid extreme heat (hot tubs, saunas). This medicine can cause you to sweat less than normal. Your body temperature could increase to dangerous levels, which may lead to heat stroke. Antacids can stop this medicine from working. If you get an upset stomach and want to take an antacid, make sure there is an interval of at least 1 to 2 hours before or after you take this medicine. Your mouth may get dry. Chewing sugarless gum or sucking hard candy, and drinking plenty of water may help. Contact your doctor if the problem does not go away or is severe. Tramadol Hydrochloride Oral tablet What is this medicine? TRAMADOL (TRA ma dole) is a pain reliever. It is used to treat moderate to severe pain in adults. How should I use this medicine? Take this medicine by mouth with a full glass of water. Follow the directions on the prescription label. If the medicine upsets your stomach, take it with food or milk. Do not take more medicine than you are told to take. Talk to your curing bin operator regarding the use of this medicine in children. Special care may be needed. What side effects may I notice from receiving this medicine? Side effects that you should report to your doctor or health laboratory animal care veterinarian as soon as possible: allergic reactions like skin rash, itching or hives, swelling of the face, lips, or tongue breathing difficulties, wheezing confusion itching light headedness or fainting spells redness, blistering, peeling or loosening of the skin, including inside the mouth seizures Side effects that usually do not require medical attention (report to your doctor or health laboratory animal care veterinarian if they continue or are bothersome): constipation dizziness drowsiness headache nausea, vomiting What may interact with this medicine? Do not take this medicine with any of the following medications: MAOIs like Carbex, Eldepryl, Marplan, Nardil, and Parnate This medicine may also interact with the following medications: alcohol or medicines that contain alcohol antihistamines benzodiazepines bupropion carbamazepine or oxcarbazepine clozapine cyclobenzaprine digoxin furazolidone linezolid medicines for depression, anxiety, or psychotic disturbances medicines for migraine headache like almotriptan, eletriptan, frovatriptan, naratriptan, rizatriptan, sumatriptan, zolmitriptan medicines for pain like pentazocine, buprenorphine, butorphanol, meperidine, nalbuphine, and propoxyphene medicines for sleep muscle relaxants naltrexone phenobarbital phenothiazines like perphenazine, thioridazine, chlorpromazine, mesoridazine, fluphenazine, prochlorperazine, promazine, and trifluoperazine procarbazine warfarin What if I miss a dose? If you miss a dose, take it as soon as you can. If it is almost time for your next dose, take only that dose. Do not take double or extra doses. Where should I keep my medicine? Keep out of the reach of children. Store at room temperature between 15 and 30 degrees C (59 and 86 degrees F). Keep container tightly closed. Throw away any unused medicine after the expiration date. What should I tell my health care provider before I take this medicine? They need to know if you have any of these conditions: brain tumor depression drug abuse or addiction head injury if you frequently drink alcohol containing drinks kidney disease or trouble passing urine liver disease lung disease, asthma, or breathing problems seizures or epilepsy suicidal thoughts, plans, or attempt; a previous suicide attempt by you or a family member an unusual or allergic reaction to tramadol, codeine, other medicines, foods, dyes, or preservatives or trying to get breast-feeding What should I watch for while using this medicine? Tell your doctor or health laboratory animal care veterinarian if your pain does not go away, if it gets worse, or if you have new or a different type of pain. You may develop tolerance to the medicine. Tolerance means that you will need a higher dose of the medicine for pain relief. Tolerance is normal and is expected if you take this medicine for a long time. Do not suddenly stop taking your medicine because you may develop a severe reaction. Your body becomes used to the medicine. This does NOT mean you are addicted. Addiction is a behavior related to getting and using a drug for a non-medical reason. If you have pain, you have a medical reason to take pain medicine. Your doctor will tell you how much medicine to take. If your doctor wants you to stop the medicine, the dose will be slowly lowered over time to avoid any side effects. You may get drowsy or dizzy. Do not drive, use machinery, or do anything that needs mental alertness until you know how this medicine affects you. Do not stand or sit up quickly, especially if you are an older patient. This reduces the risk of dizzy or fainting spells. Alcohol can increase or decrease the effects of this medicine. Avoid alcoholic drinks. You may have constipation. Try to have a bowel movement at least every 2 to 3 days. If you do not have a bowel movement for 3 days, call your doctor or health laboratory animal care veterinarian. Your mouth may get dry. Chewing sugarless gum or sucking hard candy, and drinking plenty of water may help. Contact your doctor if the problem does not go away or is severe. You have been given the following additional information: Vomiting (6Y-Adult) Gastroenteritis, Non-Infectious (Child) (Adult) Diet, Clear Liquid Diet, [place] (Adult) Diet, Clear Liquid Ondansetron Oral disintegrating tablet Dicyclomine Hydrochloride Oral tablet Tramadol Hydrochloride Oral tablet (Electronically signed by Yazmin Calderon A.R.N.P. 03/12/2017 22:57)
--- NOTE | 2017-03-12 22:58 | ED MAR SUMMARY ---
..... Medication Administration Record [facility] [address] [place] [address] Patient: MIR ROGERS Visit ID: [id number] 31y, F Weight: 106.1 kg Height/Length: 64 in BMI: 40.2 ALLERGIES: PCN Start 20:03/12/2017 Dorothy Stanley,, Stop 21:29 03/12/2017 Mikie Zamudio Medication Administered: IV NS (SALINE), Dose: IV Fluids over 1 hour(s), Rate: 1000 mL/hr, Dispensed: 1000 mL bag, Site: #1 right AC. Medication Ordered: IV NS : initial bolus 1000 mL (1000 mL/hr), then none - (NOW). Given 20:03/12/2017 Dorothy Stanley, Medication Administered: TORADOL [IVP], Dose: 30 mg IVP over 1 minute(s), Site: #1 right AC. Medication Ordered: Toradol IV 30 mg (NOW). Given 20:03/12/2017 Dorothy Stanley, Medication Administered: ZOFRAN [IVP] (ONDANSETRON HCL), Dose: 4 mg IVP over 1 minute(s), Site: #1 right AC. Medication Ordered: Zofran IV 4 mg (NOW).
--- NOTE | 2017-03-12 22:58 | ED MAR SUMMARY ---
..... Medication Administration Record [facility] [address] [place] [address] Patient: MIR ROGERS Visit ID: [id number] 31y, F Weight: 106.1 kg Height/Length: 64 in BMI: 40.2 ALLERGIES: PCN Start 20:03/12/2017 Dorothy Stanley,, Stop 21:29 03/12/2017 Mikie Zamudio Medication Administered: IV NS (SALINE), Dose: IV Fluids over 1 hour(s), Rate: 1000 mL/hr, Dispensed: 1000 mL bag, Site: #1 right AC. Medication Ordered: IV NS : initial bolus 1000 mL (1000 mL/hr), then none - (NOW). Given 20:03/12/2017 Dorothy Stanley, Medication Administered: TORADOL [IVP], Dose: 30 mg IVP over 1 minute(s), Site: #1 right AC. Medication Ordered: Toradol IV 30 mg (NOW). Given 20:03/12/2017 Dorothy Stanley, Medication Administered: ZOFRAN [IVP] (ONDANSETRON HCL), Dose: 4 mg IVP over 1 minute(s), Site: #1 right AC. Medication Ordered: Zofran IV 4 mg (NOW).
--- NOTE | 2017-03-12 22:58 | ED MED RECONCILIATION SUMMARY ---
Patient: MIR ROGERS Medication Reconciliation Report [facility] VisitID: [id number] [address] [place] [address] 31y, F Registration Date/Time: 03/12/2017 Weight: 106.1 kg Height/Length: 64 in. BMI: 40.2 ALLERGIES: PCN The patient's Home Medications are listed below: NONE. The source(s) of the original Home Medication information: Not obtained. The following Medications were given to the patient in the Emergency Department: IV NS IV Fluids bolus 0, then 1000 mL/hr, administered: 03/12/2017 8:20:00 PM Toradol [IVP] IVP 30 mg, administered: 03/12/2017 8:20:00 PM Zofran [IVP] IVP 4 mg, administered: 03/12/2017 8:20:00 PM The following Medications were prescribed to the patient: Zofran 4 mg: Take 1 orally every six hours as needed for nausea/vomiting. Dispense ten (10). No refills. Substitution is permissible. -- Yazmin Calderon A.R.N.P. Bentyl 20 mg tablets: take 1 orally every 6 hours as needed. Dispense thirty (30). No refills. Substitution is permissible. -- Yazmin Calderon A.R.N.P. Ultram 50 mg tablets: take 1-2 orally every 6 hours as needed for pain. Dispense twenty (20). No refills. Substitution is permissible. -- Yazmin Calderon A.R.N.P.
--- NOTE | 2017-03-12 22:58 | ED MED RECONCILIATION SUMMARY ---
Patient: MIR ROGERS Medication Reconciliation Report [facility] VisitID: [id number] [address] [place] [address] 31y, F Registration Date/Time: 03/12/2017 Weight: 106.1 kg Height/Length: 64 in. BMI: 40.2 ALLERGIES: PCN The patient's Home Medications are listed below: NONE. The source(s) of the original Home Medication information: Not obtained. The following Medications were given to the patient in the Emergency Department: IV NS IV Fluids bolus 0, then 1000 mL/hr, administered: 03/12/2017 8:20:00 PM Toradol [IVP] IVP 30 mg, administered: 03/12/2017 8:20:00 PM Zofran [IVP] IVP 4 mg, administered: 03/12/2017 8:20:00 PM The following Medications were prescribed to the patient: Zofran 4 mg: Take 1 orally every six hours as needed for nausea/vomiting. Dispense ten (10). No refills. Substitution is permissible. -- Yazmin Calderon A.R.N.P. Bentyl 20 mg tablets: take 1 orally every 6 hours as needed. Dispense thirty (30). No refills. Substitution is permissible. -- Yazmin Calderon A.R.N.P. Ultram 50 mg tablets: take 1-2 orally every 6 hours as needed for pain. Dispense twenty (20). No refills. Substitution is permissible. -- Yazmin Calderon A.R.N.P.
== END 2017-03-12 21:30 | disposition home or self-care (01) ==
LOC: ED SRH 19:29
DX: K52.9 Noninfective gastroenteritis and colitis, unspecified (principal); R11.2 Nausea with vomiting, unspecified; E86.0 Dehydration; F17.210 Nicotine dependence, cigarettes, uncomplicated
CPT/HCPCS: 90004; 90100; 92235; 92530; 93070; 95059

== ENCOUNTER 2017-04-03 19:15 | Emergency (ER) | payer OTHER ==
--- NOTE | 2017-04-03 21:45 | ED ORDER SUMMARY ---
..... Patient: MIR ROGERS OrderSheet [facility] VisitID: [id number] [place] [address] 31y, F Registration Date/Time: 04/03/2017 ORDER SHEET Weight: 102.5 kg (stated) Allergies: PCN GENERAL ORDERS: Vitals (22:22 04/03/2017 EKoroleva P.A.-C) (22:40 Kesha R.N.) MEDICATION ORDERS: IV FLUIDS: IV NS : initial bolus 1000 mL (1000 mL/hr), then 1000 mL/hr for X1 (NOW); Christiano (20:28 04/03/2017 EKoroleva P.A.-C) (21:11 omanelli R.N.) Toradol IV 30 mg (NOW) (20:29 04/03/2017 EKoroleva P.A.-C) (21:14 omanelli R.N.) Reglan IV 10 mg (NOW) (20:29 04/03/2017 EKoroleva P.A.-C) (21:16 omanelli R.N.) Zofran IV 4 mg (NOW) (20:29 04/03/2017 EKoroleva P.A.-C) (21:11 omanelli R.N.) Benadryl IV 25 mg (NOW) (20:29 04/03/2017 EKoroleva P.A.-C) (21:15 omanelli R.N.) ORDER SHEET NOTES: [Electronically signed by Roby Castro R.N. (22:44 04/03/2017)] [Electronically signed by Megan Norman P.A.-C (13:25 04/04/2017)] [Electronically locked/signed by Roby Castro R.N. (22:44 04/03/2017)]
--- NOTE | 2017-04-03 21:45 | ED NURSING NOTES ---
Clinical Report - Nurses [facility] [address] [place] [address] 04/03/2017 19:14 [id number] Triage time 20:Apr 03 2017. Acuity: LEVEL 3. Chief Complaint: MIGRAINE HEADACHE. Alert. GALINA COMA SCORE: Galina Coma Scale: 15- eyes open spontaneously (4); best verbal response- oriented x 4 (5); best motor response- obeys commands (6). --20:16 Chetan Bernard R.N. 20:08 04/03/17. BP: 111/65. HR: 76. RR: 18. O2 saturation: 99% on room air. Temp: 98.2 F. Pain level now: 08/12. --20:16 Chetan Bernard R.N. Weight: 102.5 kg stated. Height/Length: 64 inches Per Patient. BMI: 38.8. --20:09 Chetan Bernard R.N. Medications Some dissolvable pill that tastes like mint and is taken prn FROST's. --20:13 Chetan Bernard R.N. Allergies PCN. Definite Severe(swelling) (Closes my throat) --20:13 Chetan Bernard R.N. Medication/allergy information source: the patient. --20:16 Chetan Bernard R.N. History Arrived by private vehicle, and unaccompanied. ( Migraine FROST associated with Nausea and Dizziness.). This started today about 2. Patient was last known well (at 6 PM). She has had nausea. ( dizziness). PAST MEDICAL HX: Headaches. Immunizations: up-to-date. Last normal menstrual period was 8 weeks ago. Denies current . SOCIAL HX: Light tobacco smoker (cigarette)- less than 1/2 a pack per day. No alcohol use or drug use. No recent travel. No infectious disease exposure. ABUSE ASSESSMENT: No report of abuse. FALL RISK ASSESSMENT: Fall risk assessment completed. No fall risk identified. NUTRITIONAL RISK ASSESSMENT: The nutritional risk assessment revealed no deficiencies. FUNCTIONAL ASSESSMENT: Functional assessment: no impairments noted. LEARNING NEEDS ASSESSMENT: The learning needs assessment revealed no barriers. SKIN INTEGRITY ASSESSMENT: Skin integrity risk assessment completed. No skin integrity risk identified. --20:16 Chetan Bernard R.N. PROBLEMS: Vomiting. Gastroenteritis. Dental Pain. Scabies. Felon. Fall. Ovarian Cyst. Discomfort of . Anxiety Reaction. . Chronic Headache. Sick Contact. Back Pain. Anemia. Sciatica. Migraine Headache. UTI - Urinary Tract Infection. Paronychia. Abscess. Cellulitis. Tetanus Status. Hematuria. Immunizations. LNMP - Last Normal Menstrual Period. --20:15 Chetan Bernard R.N. ADDITIONAL SURGERIES: Appendectomy. . --20:15 Chetan Bernard R.N. Interventions ID band on patient. To treatment room. --20:16 Chetan Bernard R.N. PHYSICAL ASSESSMENT Ambulatory to room. GENERAL / NEURO / PSYCH: Alert. Oriented X 4. Appears in pain. Speech within normal limits. HEENT: No facial asymmetry noted. RESPIRATORY: Respirations not labored. CVS: Capillary refill less than 2 seconds. GI / : Abdomen soft and nontender. SKIN: Skin is warm and dry. --20:17 Chetan Bernard R.N. NURSING PROGRESS NOTES Patient gowned. Reassurance given. Lights dimmed. Patient identifiers checked. Call light placed in reach. Side rails up. Bed placed in lowest position. Brakes of bed on. Patient ready for evaluation- chart flagged and ED physician notified. --20:17 Chetan Bernard R.N. ( Patient vomited x 1, food visible, she says it is roast with vegetables). --20:23 Breonna Kwon R.N. 20:56 04/03/2017 Started bag #1 1000 mL IV Fluids IV NS (Saline); at 1000 mL/hr over 60 minute(s) via site #1. Allergies verified and confirmed 5 rights. IV patency established. IV site checked: no pain, redness, or swelling. IV flushed thoroughly pre- and post-medication administration. --21:11 Chetan Bernard R.N. 20:56 04/03/2017 Zofran (Ondansetron HCl) IVP 4 mg given over 2 minute(s) via site #1. Allergies verified and confirmed 5 rights. IV patency established. IV site checked: no pain, redness, or swelling. IV flushed thoroughly pre- and post-medication administration. IVP given by RN. --21:11 Chetan Bernard R.N. 21:04/03/2017 Site #1 started via IV in the right antecubital space with an 22g angiocath, with aseptic technique and good blood return; one attempt. Saline lock flushed with 10 mL saline. --21:10 Chetan Bernard R.N. <<STRICKEN ENTRY-- 21:00 04/03/2017 Zofran (Ondansetron HCl) IVP 4 mg given over 2 minute(s) via site #1. Allergies verified and confirmed 5 rights. IV patency established. IV site checked: no pain, redness, or swelling. IV flushed thoroughly pre- and post-medication administration. IVP given by RN. --21:12 Chetan Bernard R.N. --END STRIKE>> Correction. --21:13 Chetan Bernard R.N. 21:04/03/2017 Zofran (Ondansetron HCl) IVP 4 mg given over 2 minute(s) via site #1. --21:13 Chetan Bernard R.N. 21:04/03/2017 Toradol IVP 30 mg given over 2 minute(s) via site #1. Allergies verified and confirmed 5 rights. IV patency established. IV site checked: no pain, redness, or swelling. IV flushed thoroughly pre- and post-medication administration. IVP given by RN. --21:14 Chetan Bernard R.N. 21:04/03/2017 Benadryl (DiphenhydrAMINE HCl) IVP 25 mg given over 2 minute(s) via site #1. Allergies verified, confirmed 5 rights and sedative warning given. IV patency established. IV site checked: no pain, redness, or swelling. IV flushed thoroughly pre- and post-medication administration. IVP given by RN. --21:15 Chetan Bernard R.N. 21:04/03/2017 Reglan (Metoclopramide HCl) IVP 10 mg given over 2 minute(s) via site #1. Allergies verified and confirmed 5 rights. IV patency established. IV site checked: no pain, redness, or swelling. IV flushed thoroughly pre- and post-medication administration. IVP given by RN. --21:16 Chetan Bernard R.N. ( 2055 Zofran dose double-charted). --21:17 Chetan Bernard R.N. 22:40 04/03/2017 IV Fluids IV NS Discontinued: completed upon discharge. Total amount infused: 1000 mL. IV patency established. IV site checked: no pain, redness, or swelling. IV flushed thoroughly. --22:44 Roby Castro R.N. DISPOSITION / DISCHARGE 22:40 04/03/2017 Site #1 removed upon discharge. Manual pressure and bandage applied. --22:41 Roby Castro R.N. Departure time: 22:42. Condition at departure: stable. No learning barriers present. Discharge instructions provided and reviewed with the patient. Reviewed warnings. Reviewed medication(s) side effects, precautions, dosing and course information. Prescription(s) given to the patient. Treatments reviewed. Reviewed referrals for followup. Patient verbalized understanding. Written instructions provided in Qatari. The patient was discharged home and accompanied by chip unloader. She left the Emergency Department ambulatory and via private vehicle. Boat Hoist Operator driving. --22:43 Roby Castro R.N. 22:41 04/03/17. BP: 136/83. HR: 75. RR: 24 (regular and unlabored). O2 saturation: 100% on room air. Pain level now: 12/13. --22:43 Roby Castro R.N. Locked/Released at 04/03/2017 22:44 by Roby Castro R.N.
--- NOTE | 2017-04-03 21:45 | ED CLINICAL REPORT ---
Clinical Report - Physicians/Mid Levels [facility] [address] [place] [address] 04/03/2017 19:14 Patient: MIR ROGERS Time Seen: 2028. Arrived- By private vehicle. Historian- patient. HISTORY OF PRESENT ILLNESS Chief Complaint: HEADACHE. Is still present. This started today. It is described as similar to previous headaches, "pain" and throbbing. Has had neck pain. The patient has had nausea. (Left orbital headache sharp throbbing in nature with nausea and photosensitivity, with similar symptoms as previous. Reports she has tried multiple medications with her neurologist. Reports no recent trauma. Denies any recent illness. Patient denies any fevers.). REVIEW OF SYSTEMS No fever, sinus pressure, ear pain or tick bite. All systems otherwise negative, except as recorded above. PAST HISTORY Problems: Headache. Vomiting. Gastroenteritis. Dental Pain. Scabies. Felon. Fall. Ovarian Cyst. Discomfort of . Anxiety Reaction. . OB History. Chronic Headache. Recent Travel. Sick Contact. Back Pain. Anemia. Sciatica. Migraine Headache. UTI - Urinary Tract Infection. Paronychia. Abscess. Cellulitis. Tetanus Status. Hematuria. Immunizations. LNMP - Last Normal Menstrual Period. Additional Surgeries: Appendectomy. . Medications: Some dissolvable pill that tastes like mint and is taken prn FROST's. Allergies: PCN. Definite Severe(swelling) (Closes my throat). SOCIAL HISTORY Smoker- current status unknown. No alcohol use. ADDITIONAL NOTES The nursing notes have been reviewed. PHYSICAL EXAM Vital Signs: 04/03/2017 20:08 BP: 111/65. HR: 76. RR: 18. O2 saturation: 99%. Temp: 98.2 F. Pain level now: 10/10. Appearance: Alert. Eyes: Pupils equal, round and reactive to light. Eyes normal inspection. No abnormal funduscopic findings. ENT: Ears normal. Nose normal. No pharyngeal erythema or tonsillar exudate. Neck: Normal inspection. CVS: Normal heart rate and rhythm. Heart sounds normal. Respiratory: No respiratory distress. No decreased air movement. Abdomen: Soft. Back: Normal inspection. Skin: Skin warm. Normal skin color. Neuro: Oriented X 3. Alert. Mood/affect normal. Speech normal. Cranial nerves normal (as tested). No cerebellar findings. No motor deficit. No sensory deficit. No abnormal Romberg test. PROGRESS AND PROCEDURES Course of Care: patient with migraine headache that is similar to her previous. And also segmented edge, subarachnoid hemorrhage. Patient given medications in the emergency Department negative area exam stable. To follow with her neurologist. 04/03/2017 20:08 BP: 111/65. HR: 76. RR: 18. O2 saturation: 99%. Temp: 98.2 F. Pain level now: 08/12. Patient is stable. Physical exam findings are improved. Symptoms better. Patient/family counseled. Disposition: Discharged. CLINICAL IMPRESSION Acute migraine headache. INSTRUCTIONS Warnings: SEDATIVE MEDICATION: You were given sedative medication during your visit. Do not drive or operate dangerous machinery. Prescription Medications: Phenergan 12.5 mg tablets: take 1 orally every 6 hours as needed for nausea. Dispense ten (10). No refill. Substitution is permissible Follow-up: Follow up with your doctor Friday as needed. Understanding of the discharge instructions verbalized. (Electronically signed by Megan Norman P.A.-C 04/04/2017 13:25)
--- NOTE | 2017-04-03 21:45 | ED ORDER SUMMARY ---
..... Patient: MIR ROGERS OrderSheet [facility] VisitID: [id number] [place] [address] 31y, F Registration Date/Time: 04/03/2017 ORDER SHEET Weight: 102.5 kg (stated) Allergies: PCN GENERAL ORDERS: Vitals (22:22 04/03/2017 EKoroleva P.A.-C) (22:40 Kesha R.N.) MEDICATION ORDERS: IV FLUIDS: IV NS : initial bolus 1000 mL (1000 mL/hr), then 1000 mL/hr for X1 (NOW); Christiano (20:28 04/03/2017 EKoroleva P.A.-C) (21:11 omanelli R.N.) Toradol IV 30 mg (NOW) (20:29 04/03/2017 EKoroleva P.A.-C) (21:14 omanelli R.N.) Reglan IV 10 mg (NOW) (20:29 04/03/2017 EKoroleva P.A.-C) (21:16 omanelli R.N.) Zofran IV 4 mg (NOW) (20:29 04/03/2017 EKoroleva P.A.-C) (21:11 omanelli R.N.) Benadryl IV 25 mg (NOW) (20:29 04/03/2017 EKoroleva P.A.-C) (21:15 omanelli R.N.) ORDER SHEET NOTES: [Electronically signed by Roby Castro R.N. (22:44 04/03/2017)] [Electronically signed by Megan Norman P.A.-C (13:25 04/04/2017)] [Electronically locked/signed by Roby Castro R.N. (22:44 04/03/2017)]
--- NOTE | 2017-04-03 21:45 | ED CLINICAL REPORT ---
Clinical Report - Physicians/Mid Levels [facility] [address] [place] [address] 04/03/2017 19:14 Patient: MIR ROGERS Time Seen: 2028. Arrived- By private vehicle. Historian- patient. HISTORY OF PRESENT ILLNESS Chief Complaint: HEADACHE. Is still present. This started today. It is described as similar to previous headaches, "pain" and throbbing. Has had neck pain. The patient has had nausea. (Left orbital headache sharp throbbing in nature with nausea and photosensitivity, with similar symptoms as previous. Reports she has tried multiple medications with her neurologist. Reports no recent trauma. Denies any recent illness. Patient denies any fevers.). REVIEW OF SYSTEMS No fever, sinus pressure, ear pain or tick bite. All systems otherwise negative, except as recorded above. PAST HISTORY Problems: Headache. Vomiting. Gastroenteritis. Dental Pain. Scabies. Felon. Fall. Ovarian Cyst. Discomfort of . Anxiety Reaction. . OB History. Chronic Headache. Recent Travel. Sick Contact. Back Pain. Anemia. Sciatica. Migraine Headache. UTI - Urinary Tract Infection. Paronychia. Abscess. Cellulitis. Tetanus Status. Hematuria. Immunizations. LNMP - Last Normal Menstrual Period. Additional Surgeries: Appendectomy. . Medications: Some dissolvable pill that tastes like mint and is taken prn FROST's. Allergies: PCN. Definite Severe(swelling) (Closes my throat). SOCIAL HISTORY Smoker- current status unknown. No alcohol use. ADDITIONAL NOTES The nursing notes have been reviewed. PHYSICAL EXAM Vital Signs: 04/03/2017 20:08 BP: 111/65. HR: 76. RR: 18. O2 saturation: 99%. Temp: 98.2 F. Pain level now: 10/10. Appearance: Alert. Eyes: Pupils equal, round and reactive to light. Eyes normal inspection. No abnormal funduscopic findings. ENT: Ears normal. Nose normal. No pharyngeal erythema or tonsillar exudate. Neck: Normal inspection. CVS: Normal heart rate and rhythm. Heart sounds normal. Respiratory: No respiratory distress. No decreased air movement. Abdomen: Soft. Back: Normal inspection. Skin: Skin warm. Normal skin color. Neuro: Oriented X 3. Alert. Mood/affect normal. Speech normal. Cranial nerves normal (as tested). No cerebellar findings. No motor deficit. No sensory deficit. No abnormal Romberg test. PROGRESS AND PROCEDURES Course of Care: patient with migraine headache that is similar to her previous. And also segmented edge, subarachnoid hemorrhage. Patient given medications in the emergency Department negative area exam stable. To follow with her neurologist. 04/03/2017 20:08 BP: 111/65. HR: 76. RR: 18. O2 saturation: 99%. Temp: 98.2 F. Pain level now: 08/12. Patient is stable. Physical exam findings are improved. Symptoms better. Patient/family counseled. Disposition: Discharged. CLINICAL IMPRESSION Acute migraine headache. INSTRUCTIONS Warnings: SEDATIVE MEDICATION: You were given sedative medication during your visit. Do not drive or operate dangerous machinery. Prescription Medications: Phenergan 12.5 mg tablets: take 1 orally every 6 hours as needed for nausea. Dispense ten (10). No refill. Substitution is permissible Follow-up: Follow up with your doctor Friday as needed. Understanding of the discharge instructions verbalized. (Electronically signed by Megan Norman P.A.-C 04/04/2017 13:25)
--- NOTE | 2017-04-04 13:25 | ED MAR SUMMARY ---
..... Medication Administration Record [facility] [address] [place] [place] [address] Patient: MIR ROGERS Visit ID: [id number] 31y, F Weight: 102.5 kg Height/Length: 64 in BMI: 38.8 ALLERGIES: PCN Start 20:56 04/03/2017 Chetan Bernard R.N., Stop 22:40 04/03/2017 Roby Castro R.N. Medication Administered: IV NS (SALINE), Dose: IV Fluids over 60 minute(s), Rate: 1000 mL/hr, Dispensed: 1000 mL bag, Site: #1. Medication Ordered: IV NS : initial bolus 1000 mL (1000 mL/hr), then 1000 mL/hr for X1 (NOW); Christiano. Given 20:56 04/03/2017 Chetan Bernard R.N. Medication Administered: ZOFRAN [IVP] (ONDANSETRON HCL), Dose: 4 mg IVP over 2 minute(s), Site: #1. Medication Ordered: Zofran IV 4 mg (NOW). Given 21:00 04/03/2017 Chetan Bernard R.N. Medication Administered: ZOFRAN [IVP] (ONDANSETRON HCL), Dose: 4 mg IVP over 2 minute(s), Site: #1 right AC. Medication Ordered: Zofran IV 4 mg (NOW). Given 21:04 04/03/2017 Chetan Bernard R.N. Medication Administered: TORADOL [IVP], Dose: 30 mg IVP over 2 minute(s), Site: #1 right AC. Medication Ordered: Toradol IV 30 mg (NOW). Given 21:06 04/03/2017 Chetan Bernard R.N. Medication Administered: REGLAN [IVP] (METOCLOPRAMIDE HCL), Dose: 10 mg IVP over 2 minute(s), Site: #1 right AC. Medication Ordered: Reglan IV 10 mg (NOW). Given 21:06 04/03/2017 Chetan Bernard R.N. Medication Administered: BENADRYL [IVP] (DIPHENHYDRAMINE HCL), Dose: 25 mg IVP over 2 minute(s), Site: #1 right AC. Medication Ordered: Benadryl IV 25 mg (NOW).
--- NOTE | 2017-04-04 13:25 | ED DISCHARGE INSTRUCTIONS ---
Patient: MIR ROGERS General Instructions [facility] VisitID: [id number] [place] [address] 31y, F Registration Date/Time: 04/03/2017 Acute migraine headache. INSTRUCTIONS Warnings: SEDATIVE MEDICATION: You were given sedative medication during your visit. Do not drive or operate dangerous machinery. Prescription Medications: Phenergan 12.5 mg tablets: take 1 orally every 6 hours as needed for nausea. Dispense ten (10). No refill. Substitution is permissible Follow-up: Follow up with your doctor Friday as needed. Understanding of the discharge instructions verbalized. ADDITIONAL INFORMATION Migraine Headache Migraine headaches are related to changes in blood flow to the brain. This causes throbbing or constant pain on one or both sides of the head. The pain may last from a few hours to several days. There is usually nausea, vomiting, sensitivity to light and sound, and blurred vision. A migraine attack may be triggered by emotional stress, hormone changes during the menstrual cycle, oral contraceptives, alcohol use, certain foods containing tyramine, eye strain, weather changes, missing meals, or too little or too much sleep. Home Care For This Headache: 1) If you were given pain medicine for this headache, do not drive yourself home . Arrange for a ride, instead. When you get home, try to sleep. You should feel much better when you wake up. 2) Migraine headaches may improve with an ice pack on the forehead or at the base of the skull. Heat to the back of your neck may relieve any neck spasm. 3) Drink only clear liquids or eat a very light diet to avoid nausea/vomiting until symptoms improve. Preventing Future Headaches: 1) Pay attention to those factors that seem to trigger your headache. Try to avoid them when you can. If you have frequent headaches, it is useful to keep a diary of what you were doing, feeling or eating in the hours before each attack. Show this to your doctor to help find the cause of your headaches. a) If you feel that stress is a factor in your headaches, look at the sources of stress in your life. Find ways to release the build-up of those stresses by using regular exercise, relaxation methods (yoga, meditation), bio-feedback or simply taking time-out for yourself. For more information about this, consult your doctor or go to a local bookstore and review books and tapes on this subject. b) Tyramine is a substance present in the following foods : chocolate, yogurt, all cheeses except cottage cheese and cream cheese. smoked or pickled fish and meat (including infante, caviar, bologna, pepperoni, salami), liver, avocados, bananas, figs, raisins, and red wine. Be aware that these foods may trigger a migraine in some persons. Try taking these foods out of your diet for 1-2 months to see if this reduces headache frequency. Treating Future Attacks: 1) At the first sign of a headache, take time out if possible. Find a quiet, dark, comfortable place to sit or lie down. Let yourself relax or sleep. 2) An ice pack on the forehead or area of greatest pain may help. If you are having muscle spasm and tightness of the neck, a heating pad and massage to this area may be helpful. 3) If you have been prescribed a medicine to stop a migraine headache, use this at the very first warning sign of the headache (aura or initial pain) for best results. Follow Up with your doctor if the headache is not better within the next 24 hours. If you have frequent headaches you should discuss a treatment plan with your primary care doctor. Ask if you can have medicine to take at home the next time you get a bad headache. Poorly controlled chronic headaches may require a referral to a neurologist (headache specialist). Get Prompt Medical Attention if any of the following occur: Your head pain gets worse, or does not improve within 24 hours Repeated vomiting (cant keep liquids down) Sinus or ear or throat pain (not already reported) Fever of 100.4 F (38 C) or higher, or as directed by your healthcare provider Stiff neck Extreme drowsiness, confusion or fainting Dizziness, vertigo (dizziness with spinning sensation) Weakness of an arm or leg or one side of the face Difficulty with speech or vision Promethazine Hydrochloride Oral tablet What is this medicine? PROMETHAZINE (proe METH a zeen) is an antihistamine. It is used to treat allergic reactions and to treat or prevent nausea and vomiting from illness or motion sickness. It is also used to make you sleep before surgery, and to help treat pain or nausea after surgery. How should I use this medicine? Take this medicine by mouth with a glass of water. Follow the directions on the prescription label. Take your doses at regular intervals. Do not take your medicine more often than directed. Talk to your obstetrics/gynecology nurse regarding the use of this medicine in children. Special care may be needed. This medicine should not be given to infants and children younger than 2 years old. What side effects may I notice from receiving this medicine? Side effects that you should report to your doctor or health director of managed care as soon as possible: blurred vision irregular heartbeat, palpitations or chest pain muscle or facial twitches pain or difficulty passing urine seizures skin rash slowed or shallow breathing unusual bleeding or bruising yellowing of the eyes or skin Side effects that usually do not require medical attention (report to your doctor or health director of managed care if they continue or are bothersome): headache nightmares, agitation, nervousness, excitability, not able to sleep (these are more likely in children) stuffy nose What may interact with this medicine? Do not take this medicine with any of the following medications: medicines called MAO Inhibitors like Nardil, Parnate, Marplan, Eldepryl other phenothiazines like trimethobenzamide This medicine may also interact with the following medications: barbiturates like phenobarbital bromocriptine certain antidepressants certain antihistamines used in allergy or cold medicines epinephrine levodopa medicines for sleep medicines for mental problems and psychotic disturbances medicines for movement abnormalities as in Parkinson's disease, or for gastrointestinal problems muscle relaxants prescription pain medicines What if I miss a dose? If you miss a dose, take it as soon as you can. If it is almost time for your next dose, take only that dose. Do not take double or extra doses. Where should I keep my medicine? Keep out of the reach of children. Store at room temperature, between 20 and 25 degrees C (68 and 77 degrees F). Protect from light. Throw away any unused medicine after the expiration date. What should I tell my health care provider before I take this medicine? They need to know if you have any of these conditions: glaucoma high blood pressure or heart disease kidney disease liver disease lung or breathing disease, like asthma prostate trouble pain or difficulty passing urine seizures an unusual or allergic reaction to promethazine or phenothiazines, other medicines, foods, dyes, or preservatives or trying to get breast-feeding What should I watch for while using this medicine? Tell your doctor or health director of managed care if your symptoms do not start to get better in 1 to 2 days. You may get drowsy or dizzy. Do not drive, use machinery, or do anything that needs mental alertness until you know how this medicine affects you. To reduce the risk of dizzy or fainting spells, do not stand or sit up quickly, especially if you are an older patient. Alcohol may increase dizziness and drowsiness. Avoid alcoholic drinks. Your mouth may get dry. Chewing sugarless gum or sucking hard candy, and drinking plenty of water may help. Contact your doctor if the problem does not go away or is severe. This medicine may cause dry eyes and blurred vision. If you wear contact lenses you may feel some discomfort. Lubricating drops may help. See your eye doctor if the problem does not go away or is severe. This medicine can make you more sensitive to the sun. Keep out of the sun. If you cannot avoid being in the sun, wear protective clothing and use sunscreen. Do not use sun lamps or tanning beds/booths. If you are diabetic, check your blood-sugar levels regularly. You have been given the following additional information: Headache, Migraine (Classical) Promethazine Hydrochloride Oral tablet (Electronically signed by Megan Norman P.A.-C 04/04/2017 13:25)
--- NOTE | 2017-04-04 13:25 | ED MED RECONCILIATION SUMMARY ---
Patient: MIR ROGERS Medication Reconciliation Report [facility] VisitID: [id number] [address] [place] [address] 31y, F Registration Date/Time: 04/03/2017 Weight: 102.5 kg Height/Length: 64 in. BMI: 38.8 ALLERGIES: PCN The patient's Home Medications are listed below: THE FOLLOWING MEDICATIONS NEED TO BE RECONCILED: Some dissolvable pill that tastes like mint and is taken prn FROST's The source(s) of the original Home Medication information: patient The following Medications were given to the patient in the Emergency Department: IV NS IV Fluids bolus 0, then 1000 mL/hr, administered: 04/03/2017 8:56:00 PM Zofran [IVP] IVP 4 mg, administered: 04/03/2017 8:56:00 PM Zofran [IVP] IVP 4 mg, administered: 04/03/2017 9:00:00 PM Toradol [IVP] IVP 30 mg, administered: 04/03/2017 9:04:00 PM Benadryl [IVP] IVP 25 mg, administered: 04/03/2017 9:06:00 PM Reglan [IVP] IVP 10 mg, administered: 04/03/2017 9:06:00 PM The following Medications were prescribed to the patient: Phenergan 12.5 mg tablets: take 1 orally every 6 hours as needed for nausea. Dispense ten (10). No refill. Substitution is permissible -- Megan Norman, PAbhijeetAAbhijeet-C
--- NOTE | 2017-04-04 13:25 | ED MED RECONCILIATION SUMMARY ---
Patient: MIR ROGERS Medication Reconciliation Report [facility] VisitID: [id number] [address] [place] [address] 31y, F Registration Date/Time: 04/03/2017 Weight: 102.5 kg Height/Length: 64 in. BMI: 38.8 ALLERGIES: PCN The patient's Home Medications are listed below: THE FOLLOWING MEDICATIONS NEED TO BE RECONCILED: Some dissolvable pill that tastes like mint and is taken prn FROST's The source(s) of the original Home Medication information: patient The following Medications were given to the patient in the Emergency Department: IV NS IV Fluids bolus 0, then 1000 mL/hr, administered: 04/03/2017 8:56:00 PM Zofran [IVP] IVP 4 mg, administered: 04/03/2017 8:56:00 PM Zofran [IVP] IVP 4 mg, administered: 04/03/2017 9:00:00 PM Toradol [IVP] IVP 30 mg, administered: 04/03/2017 9:04:00 PM Benadryl [IVP] IVP 25 mg, administered: 04/03/2017 9:06:00 PM Reglan [IVP] IVP 10 mg, administered: 04/03/2017 9:06:00 PM The following Medications were prescribed to the patient: Phenergan 12.5 mg tablets: take 1 orally every 6 hours as needed for nausea. Dispense ten (10). No refill. Substitution is permissible -- Megan Norman, PAbhijeetAAbhijeet-C
--- NOTE | 2017-04-04 13:25 | ED MAR SUMMARY ---
..... Medication Administration Record [facility] [address] [place] [address] Patient: MIR ROGERS Visit ID: [id number] 31y, F Weight: 102.5 kg Height/Length: 64 in BMI: 38.8 ALLERGIES: PCN Start 20:56 04/03/2017 Chetan Bernard R.N., Stop 22:40 04/03/2017 Roby Castro R.N. Medication Administered: IV NS (SALINE), Dose: IV Fluids over 60 minute(s), Rate: 1000 mL/hr, Dispensed: 1000 mL bag, Site: #1. Medication Ordered: IV NS : initial bolus 1000 mL (1000 mL/hr), then 1000 mL/hr for X1 (NOW); Christiano. Given 20:56 04/03/2017 Chetan Bernard R.N. Medication Administered: ZOFRAN [IVP] (ONDANSETRON HCL), Dose: 4 mg IVP over 2 minute(s), Site: #1. Medication Ordered: Zofran IV 4 mg (NOW). Given 21:00 04/03/2017 Chetan Bernard R.N. Medication Administered: ZOFRAN [IVP] (ONDANSETRON HCL), Dose: 4 mg IVP over 2 minute(s), Site: #1 right AC. Medication Ordered: Zofran IV 4 mg (NOW). Given 21:04 04/03/2017 Chetan Bernard R.N. Medication Administered: TORADOL [IVP], Dose: 30 mg IVP over 2 minute(s), Site: #1 right AC. Medication Ordered: Toradol IV 30 mg (NOW). Given 21:06 04/03/2017 Chetan Bernard R.N. Medication Administered: REGLAN [IVP] (METOCLOPRAMIDE HCL), Dose: 10 mg IVP over 2 minute(s), Site: #1 right AC. Medication Ordered: Reglan IV 10 mg (NOW). Given 21:06 04/03/2017 Chetan Bernard R.N. Medication Administered: BENADRYL [IVP] (DIPHENHYDRAMINE HCL), Dose: 25 mg IVP over 2 minute(s), Site: #1 right AC. Medication Ordered: Benadryl IV 25 mg (NOW).
== END 2017-04-03 22:45 | disposition home or self-care (01) ==
LOC: ED SRH 19:15
DX: G43.909 Migraine, unspecified, not intractable, without status migrainosus (principal); F17.210 Nicotine dependence, cigarettes, uncomplicated; Z88.0 Allergy status to penicillin